=== PATIENT | male | born 1960 | race Caucasian/White ===

== ENCOUNTER 2023-07-29 15:51 | Outpatient (CLI) | payer OTHER, SELFPAY ==
--- NOTE | ~2023-07-29 | XR_ITS ---
EXAMINATION: XR hand LT min 3V DATE: 07/29/2023 16:21 INDICATION: Left hand pain. TECHNIQUE: 3 views of left hand were obtained. COMPARISON: None. FINDINGS: Bone alignment is normal. No fracture. There is moderate osteoarthritis of first carpometac arpal joint and mild osteoarthritis of first interphalangeal joint and second and third distal interp halangeal joints. There is a punctate radiopaque foreign body in distal fifth digit. IMPRESSION: 1. Polyarticular osteoarthritis. 2. Punctate radiopaque foreign body in distal fifth digit. Reviewed, dictated and finalized at location E.
--- NOTE | ~2023-07-29 | XR_ITS ---
EXAMINATION: XR hand RT min 3V DATE: 07/29/2023 16:21 INDICATION: Right hand pain. TECHNIQUE: 3 views of right hand were obtained. COMPARISON: None. FINDINGS: Bone alignment is normal. No fracture. There is mild osteoarthritis of distal radioulnar ernestina int, moderate osteoarthritis of first carpometacarpal joint and second and third metacarpophalangeal joints, and mild osteoarthritis of fifth metacarpophalangeal joint and many of the interphalangeal ernestina ints. There is moderate osteoarthritis of first interphalangeal joint. IMPRESSION: 1. Polyarticular osteoarthritis. Reviewed, dictated and finalized at location E.
== END 2023-07-29 15:52 | disposition home or self-care (01) ==
LOC: ANHIMG 15:53
PROVIDERS: Visit Provider Plastic Surgery
DX: M19.041 Primary osteoarthritis, right hand (principal); M19.042 Primary osteoarthritis, left hand
CPT/HCPCS: 73130

== ENCOUNTER 2024-10-21 02:39 | Day surgery (SDC) | payer OTHER, SELFPAY ==
[2024-10-01 13:16] VITALS: BMI 30.4
--- OUTSIDE RECORDS SUMMARY | 2024-10-21 02:52 | XMS_ITS | Clinical Summary ---
Author Organization [facility] Address [address] [place] [address] Care Team Providers Care Nut Roaster Helper Name Role Phone Unavailable Primary Care Provider Unavailabl e Source Comments [facility],non-owned Affiliates and Associated Physician Practices is amultiple site organization consisting of ambulatory clinics and hospital sitesin [place], [place], [place] and [place]. This disclosure is being madepursuant to the Care Everywhere program and may not contain all information available regarding this patient. Last updated 18.[facility] Social History Tobacco Use Types Packs/Day Years Used Date Smoking Tobacco: Never Assessed Sex and Gender Information Value Date Recorded Sex Assigned at Not on file Legal Sex Male 4:20 PM CDT Gender Identity Not on file Sexual Orientation Not on file Plan of Treatment Health Maintenance Due Date Last Done Comments COLOGUARD (AGES 45-75) - COL ON CA SCREENING 1962 COLON MONITORING 1962 COLONOSCOPY - COLON CA SCREENING 1962 CT COLONOGRAPHY - COLON CA SCREENING 1962 Colorectal Cancer Screening 1962 FIT - COLON CA SCREENING 1962 FLEX SIG - COLON CA SCREENING 1962 LIPID TESTING 1962 HIV SCREENING 1977 HEPATITIS C SCREENING 03/15/1980 DTAP/TDAP/TD VACCINES (1 - Tdap) 1981 PNEUMOCOCCAL VACCINE 50+ (1 of 1 - PCV) 2012 ZOSTER VACCINE (1 of 2) 2012 COVID-19 VACCINE ( - 2023-2 5 season) 2023 DEPRESSION SCREENING 04/14/2024 INFLUENZA VACCINE (#1) 2024 Respiratory Syncytial Virus (RSV) Vaccine Pt: or over 60 yrs (1 - 1-dose 75+ series) 2037 HEPATITIS B VACCINE Aged Out No longe r eligible based on patient's age to complete this topic HIB VACCINE Aged Out No longer eligi ble based on patient's age to complete this topic HPV VACCINE Aged Out No longer eligi ble based on patient's age to complete this topic MENINGOCOCCAL (Group B) VACC INE SHARED DECISION-MAKING Aged Out No longer eligibl e based on patient's age to complete this topic MENINGOCOCCAL GROUPS A/C/Y/W VACCINE Aged Out No longer eligible b ased on patient's age to complete this topic Insurance
--- OUTSIDE RECORDS SUMMARY | 2024-10-21 02:52 | XMS_ITS | Data Portability ---
Author Organization [place] - [facility], Main Office Address [address] [place] [address] Assessment No assessment recorded. Plan of Treatment Reminders Order Date Submit Date Provider Last Modified By Organization Details Last Modified Time Details Appointments Any 15 2024 08:30A M Dwight Dorsey MD Not available Not available Not available Lab HbA1c (hemoglob in A1c), blood 2024 025 Not available 07/28/2024 11:27:54 lipid panel, serum 2024 025 Not available 07/28/2024 11:27:53 CMP, serum or plasma 2024 025 [facility], [address] [place], [address], 07/28/2024 11:27:54 PSA, serum or plasma 2024 025 [facility], [address] [place], [address], 07/28/2024 11:27:54 CBC w/ auto diff 2024 025 [facility], [address] [place], [address], 07/28/2024 11:27:54 HbA1c (hemoglob in A1c), blood 2023 024 Not available 08/18/2024 09:36:04 lipid panel, serum 2023 024 Not available 08/18/2024 09:36:04 CMP, serum or plasma 2023 024 [facility], [address] [place], [address], 08/18/2024 09:36:05 PSA, serum or plasma 2023 024 [facility], [address] [place], [address], 08/18/2024 09:36:05 CBC w/ auto diff 2023 024 [facility], [address] [place], [address], 08/18/2024 09:36:05 HbA1c (hemoglob in A1c), blood 2022 023 NARAYAN Not available 02/25/2023 01:58:06 lipid panel, serum 2022 023 NARAYAN Not available 02/25/2023 01:48:05 CMP, serum or plasma 2022 023 NARAYAN [facility], [address] [place], [address], 02/24/2023 20:09:45 lipid panel, serum 2022 023 NARAYAN [facility], [address] [place], [address], 02/24/2023 20:09:50 PSA, serum or plasma 2022 023 [facility], [address] [place], [address], 03/04/2023 08:02:50 Referral EGD referral - Please call patient to schedule an appointme nt. Thank you. 2024 025 ANNETTE milner MD, [address], [address], [place], [address], 08/04/2024 12:40:32 orthopedi c surgeon referral - please eval for bilateral hand pain after trauma M79.64 2 2023 024 Not available 07/25/2023 16:04:03 Procedures None recorded. Surgeries None recorded. Imaging None recorded. Medication Orders meloxicam 15 mg tablet 2022 023 [email or web address] [id number], [address], [place], [place], [id number], 07/28/2024 10:17:09 Patient TargetsNo targets recorded. Patient Instructions Encounter Date Encounter Id Patient Instructions Last Modified By Organization Details Last Modified Time 02/24/2023 [id number] risk assessment* [email or web address] Not availabl e 02/24/2023 11:06:22 INFLUENZA VACCIN E Patient will get at local pharmacy/health department TD/TDAP Patient will get at local pharmacy/health department PNEUMONIA VACCINE Recommended at age 65 SHINGLES Patient will get at local pharmacy/health department PSA recommended COLORECTAL SCREENING No screening necessary patient is up to date DEPRESSION SCREENING Negative BMI Overweight try to lose 10% of your body weight NUTRITION Eat Heart Healthy Diet PHYSICAL ACTIVITY Need more exercise/physical activity ALCOHOL USE Occasional/Social Use TOBACCO USE non smoker LUNG CANCER SCREENING Non Smoker-not indicated SEXUALLY ACTIVE HEPATITIS C SCREENING Not indicated GLUCOSE SCREENING recommended LIPID SCREENING recommended [email or web address] Not available 02/24/2023 09:50:31 Reason for Referral Orthopedic Surgeon Referral for Pain of bilateral hands please eval for bilateral hand pain after trauma M79.642 Referring Physician: Monique Wheeler, Family Medicine, Encounter Date: 07/15/2023 EGD Referral for Gastroesoph ageal reflux disease Please call patient to schedule an appointment. Thank you. Referring Physician: Dwight Dorsey, Internal Medicine, Encounter Date: 07/28/2024 Results Created Date Observation Date Name Description Value Unit Range Abnormal Flag Note LastModifiedBy Organization Detail LastModifiedTime 02/21/202022 CBC/C OMPLE TE BLD COUNT W/DIF F hematocrit 50.9 % 39.3-5 0.0 high Not Available [facility] (Lab) [address] [place], [address], 02/20/2022 20:01:00 02/21/20 22 02/20/2022 CBC/C OMPLE TE BLD COUNT W/DIF F white blood cells 7.4 x10'3 /uL 4.2-10 .8 Not Available [facility] (Lab) [address] [facility] [place], [address], 02/20/2022 20:01:00 02/21/20 22 02/20/2022 CBC/C OMPLE TE BLD COUNT W/DIF F red blood cells 5.35 x10'6 /uL 4.10-5 .80 Not Available [facility] (Lab) [address] [place], [address], 02/20/2022 20:01:00 02/21/20 22 02/20/2022 CBC/C OMPLE TE BLD COUNT W/DIF F hemoglobin 16.8 g/dL 13.2-1 7.0 Not Available [facility] (Lab) [address] [place], [address], 02/20/2022 20:01:00 02/21/20 22 02/20/2022 CBC/C OMPLE TE BLD COUNT W/DIF F mean red cell volume 95.1 fL 80.0-9 7.0 Not Available [facility] (Lab) [address] [place], [address], 02/20/2022 20:01:00 02/21/20 22 02/20/2022 CBC/C OMPLE TE BLD COUNT W/DIF F mean red cell hemoglobin 31.4 pg 27.0-3 3.0 Not Available [facility] (Lab) [address] [place], [address], 02/20/2022 20:01:00 02/21/20 22 02/20/2022 CBC/C OMPLE TE BLD COUNT W/DIF F mean RBC HGB concentratio n 33.0 g/dL 31.0-3 6.0 Not Available [facility] (Lab) [address] [place], [address], 02/20/2022 20:01:00 02/21/20 22 02/20/2022 CBC/C OMPLE TE BLD COUNT W/DIF F red cell distribution width 13.1 % 11.8-1 5.5 Not Available [facility] (Lab) [address] [place], [address], 02/20/2022 20:01:00 02/21/20 22 02/20/2022 CBC/C OMPLE TE BLD COUNT W/DIF F platelets 178 x10'3 /uL 150-40 0 Not Available [facility] (Lab) [address] [place], [address], 02/20/2022 20:01:00 02/21/20 22 02/20/2022 CBC/C OMPLE TE BLD COUNT W/DIF F monocytes 7.7 % 5.0-12 .0 Not Available [facility] (Lab) [address] [place], [address], 02/20/2022 20:01:00 02/21/20 22 02/20/2022 CBC/C OMPLE TE BLD COUNT W/DIF F mean platelet volume 13.3 fL 9.0-12 .4 high Not Available [facility] (Lab) [address] [place], [address], 02/20/2022 20:01:00 02/21/20 22 02/20/2022 CBC/C OMPLE TE BLD COUNT W/DIF F neutrophils 67.1 % 39.0-7 2.0 Not Available [facility] (Lab) [address] [place], [address], 02/20/2022 20:01:00 02/21/20 22 02/20/2022 CBC/C OMPLE TE BLD COUNT W/DIF F lymphocytes 21.3 % 16.0-4 7.0 Not Available [facility] (Lab) [address] [place], [address], 02/20/2022 20:01:00 02/21/20 22 02/20/2022 CBC/C OMPLE TE BLD COUNT W/DIF F eosinophils 3.3 % 1.0-7. 0 Not Available [facility] (Lab) [address] [place], [address], 02/20/2022 20:01:00 02/21/20 22 02/20/2022 CBC/C OMPLE TE BLD COUNT W/DIF F basophils 0.5 % 0.0-2. 0 Not Available [facility] (Lab) [address] [place], [address], 02/20/2022 20:01:00 02/21/20 22 02/20/2022 CBC/C OMPLE TE BLD COUNT W/DIF F immature granulocytes 0.1 % 0.00-0 .50 Not Available [facility] (Lab) [address] [place], [address], 02/20/2022 20:01:00 02/21/20 22 02/20/2022 CBC/C OMPLE TE BLD COUNT W/DIF F neutrophils, absolute count 4.95 x10'3 /uL 1.5-8. 0 Not Available [facility] (Lab) [address] [place], [address], 02/20/2022 20:01:00 02/21/20 22 02/20/2022 CBC/C OMPLE TE BLD COUNT W/DIF F lymphocytes, absolute count 1.57 x10'3 /uL 1.07-3 .43 Not Available [facility] (Lab) [address] [place], [address], 02/20/2022 20:01:00 02/21/20 22 02/20/2022 CBC/C OMPLE TE BLD COUNT W/DIF F monocytes, absolute count 0.57 x10'3 /uL 0.29-0 .99 Not Available [facility] (Lab) [address] [place], [address], 02/20/2022 20:01:00 02/21/20 22 02/20/2022 CBC/C OMPLE TE BLD COUNT W/DIF F eosinophils, absolute count 0.24 x10'3 /uL 0.02-0 .53 Not Available [facility] (Lab) [address] [place], [address], 02/20/2022 20:01:00 02/21/20 22 02/20/2022 CBC/C OMPLE TE BLD COUNT W/DIF F basophils, absolute count 0.04 x10'3 /uL 0.01-0 .08 Not Available [facility] (Lab) [address] [place], [address], 02/20/2022 20:01:00 02/21/20 22 02/20/2022 CBC/C OMPLE TE BLD COUNT W/DIF F immature granulocytes ,absolute 0.01 x10'3 /uL 0.00-0 .05 Not Available [facility] (Lab) [address] [place], [address], 02/20/2022 20:01:00 02/21/20 22 02/20/2022 CBC/C OMPLE TE BLD COUNT W/DIF F nucleated red blood cells 0.0 % -0 Not Available [facility] (Lab) [address] [place], [address], 02/20/2022 20:01:00 02/21/20 22 02/20/2022 CBC/C OMPLE TE BLD COUNT W/DIF F NRBC# 0.00 x10'3 /uL Not Available [facility] (Lab) [address] [place], [address], 02/20/2022 20:01:00 02/21/20 22 02/20/2022 LIPID PANEL cholesterol 173 mg/dL 140-19 9 NIH FERNANDA NSUS RECOM MENDA TION FOR DAVID STERO L: ADULT CHILD LOW RISK: <200 <170 BORDE RLINE : <200- 239 ----- HIGH RISK: >240 >200 Not Available [facility] (Lab) [address] [place], [address], 02/20/2022 19:47:41 02/21/20 22 02/20/2022 LIPID PANEL triglyceride s 133 mg/dL 0-150 NIH FERNANDA NSUS REPOR T RECOM MENDA TION FOR TRIGL YCERI KAROLYN: ADULT CHILD LOW RISK: <150 ----- BODER LINE: 150-1 99 ----- HIGH RISK: >200 ----- Not Available [facility] (Lab) [address] [place], [address], 02/20/2022 19:47:41 02/21/20 22 02/20/2022 LIPID PANEL HDL cholesterol 32 mg/dL 40- low Not Available [facility] (Lab) [address] [place], [address], 02/20/2022 19:47:41 02/21/20 22 02/20/2022 LIPID PANEL LDL cholesterol, calculated 114 mg/dL 0-130 NIH FERNANDA NSUS REPOR T RECOM MENDA TIONS FOR LDL: ADULT CHILD LOW RISK <130 <110 (OPTI MAL LDL) <100 ----- BORDE RLINE : 130-1 59 ----- HIGH RISK: >160 >130 A TRIGL YCERI DE RESUL T >400 INVAL IDATE S THE CALCU LATIO N FOR LDL FRACT IONAT ION - THE LDL RESUL T WILL NOT BE REPOR MAURICE. Not Available [facility] (Lab) [address] [place], [address], 02/20/2022 19:47:41 02/21/20 22 02/20/2022 HEMOG LOBIN A1C HA1C 5.5 % 4.0-6. 0 Diabe anahy Scree jose alberto Crite ulises: <5.7% Consi stent with absen ce of diabe anahy 5.7-6 .4% Consi stent with incre ased risk for diabe anahy (pred iabet es) >OR=6 .5% Consi stent with diabe anahy REFER ENCE: Diabe anahy Care 2016, 39(Jenkins ppl.1 ):s13 -s22 Not Available [facility] (Lab) [address] [place], [address], 02/20/2022 22:42:56 02/21/20 22 02/20/2022 PSA SCREE N PSA medicare screen 0.76 NG/mL 0.00-4 .00 Not Available [facility] (Lab) [address] [place], [address], 02/20/2022 20:09:37 02/21/20 22 02/20/2022 COMPR EHENS SENA METAB OLIC PANEL chloride 104 mmol/ L 98-107 Not Available [facility] (Lab) [address] [place], [address], 02/20/2022 19:47:51 02/21/20 22 02/20/2022 COMPR EHENS SENA METAB OLIC PANEL sodium 138 mmol/ L 137-14 5 Not Available [facility] (Lab) [address] [place], [address], 02/20/2022 19:47:51 02/21/20 22 02/20/2022 COMPR EHENS SENA METAB OLIC PANEL potassium 4.6 mmol/ L 3.5-5. 1 Not Available [facility] (Lab) [address] [place], [address], 02/20/2022 19:47:51 02/21/20 22 02/20/2022 COMPR EHENS SENA METAB OLIC PANEL carbon dioxide 22 mmol/ L 22-30 Not Available [facility] (Lab) [address] [place], [address], 02/20/2022 19:47:51 02/21/20 22 02/20/2022 COMPR EHENS SENA METAB OLIC PANEL anion gap 16.6 mmol/ L 14-22 Not Available [facility] (Lab) [address] [place], [address], 02/20/2022 19:47:51 02/21/20 22 02/20/2022 COMPR EHENS SENA METAB OLIC PANEL glucose 70 mg/dL 70-99 Not Available [facility] (Lab) [address] [place], [address], 02/20/2022 19:47:51 02/21/20 22 02/20/2022 COMPR EHENS SENA METAB OLIC PANEL BUN 13 mg/dL 8-19 Not Available [facility] (Lab) [address] [place], [address], 02/20/2022 19:47:51 02/21/20 22 02/20/2022 COMPR EHENS SENA METAB OLIC PANEL creatinine 0.87 mg/dL 0.66-1 .25 Not Available [facility] (Lab) [address] [place], [address], 02/20/2022 19:47:51 02/21/20 22 02/20/2022 COMPR EHENS SENA METAB OLIC PANEL GFR >60 Refer ence Range : [place] ge GFR Healt hy Adult : >60 mL/mi n/1.7 3 m2 Chron ic Kidne y Disea se: 15-60 mL/mi n/1.7 3 m2 Kidne y Failu re: <15/m L/min /1.73 m2 www.n iddk. nih.g ov The MDRD study equat ion has not been valid ated in child rahel <18 years of age; pregn ant women ; the elder ly >85 years of age; or in some racia l or ethni c subgr oups, such as Hispa nics. Outsi de the valid ated brandon eters , estim ated GFR is less accur ate, requi ring clini cathie judgm ent on a case- by-ca se basis . Clini cathie inter preta tion for other races and ages must be made by the clini fabiano. The MDRD study equat ion has not been valid ated for the evalu ation of serum creat inine relat ed to nutri nithin l statu s or medic ation usage . For perso ns <18 years of age, a pedia tric GFR calcu lator is avail able on the [facility] websi te: https ://ej ernandez.dave vidal/pr ofess ional s/kdo qi/gf r_cal culat or Not Available [facility] (Lab) [address] [place], [address], 02/20/2022 19:47:51 02/21/20 22 02/20/2022 COMPR EHENS SENA METAB OLIC PANEL alkaline phosphatase 61 U/L 38-126 Not Available [facility] (Lab) [address] [place], [address], 02/20/2022 19:47:51 02/21/20 22 02/20/2022 COMPR EHENS SENA METAB OLIC PANEL alanine aminotransfe rase 29 U/L 0-50 Not Available [facility] (Lab) [address] [place], [address], 02/20/2022 19:47:51 02/21/20 22 02/20/2022 COMPR EHENS SENA METAB OLIC PANEL total protein 6.7 g/dL 6.3-8. 2 Not Available [facility] (Lab) [address] [place], [address], 02/20/2022 19:47:51 02/21/20 22 02/20/2022 COMPR EHENS SENA METAB OLIC PANEL aspartate aminotransfe rase 31 U/L 15-46 Not Available [facility] (Lab) [address] [place], [address], 02/20/2022 19:47:51 02/21/20 22 02/20/2022 COMPR EHENS SENA METAB OLIC PANEL bilirubin, total 1.00 mg/dL 0.20-1 .30 Not Available [facility] (Lab) [address] [place], [address], 02/20/2022 19:47:51 02/21/20 22 02/20/2022 COMPR EHENS SENA METAB OLIC PANEL calcium 8.7 mg/dL 8.4-10 .2 Not Available [facility] (Lab) [address] [place], [address], 02/20/2022 19:47:51 02/21/20 22 02/20/2022 COMPR EHENS SENA METAB OLIC PANEL albumin 4.2 g/dL 3.4-5. 0 Not Available [facility] (Lab) [address] [place], [address], 02/20/2022 19:47:51 02/21/20 22 02/20/2022 COMPR EHENS SENA METAB OLIC PANEL globulin 2.5 g/dL 2.6-4. 2 low Not Available [facility] (Lab) [address] [place], [address], 02/20/2022 19:47:51 02/21/20 22 02/20/2022 COMPR EHENS SENA METAB OLIC PANEL A/G ratio 1.7 ratio 1.0-2. 0 Not Available [facility] (Lab) [address] [place], [address], 02/20/2022 19:47:51 02/25/20 23 02/24/2023 COMPR EHENS SENA METAB OLIC PANEL sodium 137 mmol/ L 137-14 5 Not Available [facility] (Lab) [address] [place], [address], 02/24/2023 20:09:45 02/25/20 23 02/24/2023 COMPR EHENS SENA METAB OLIC PANEL potassium 3.9 mmol/ L 3.5-5. 1 Not Available [facility] (Lab) [address] [place], [address], 02/24/2023 20:09:45 02/25/20 23 02/24/2023 COMPR EHENS SENA METAB OLIC PANEL chloride 105 mmol/ L 98-107 Not Available [facility] (Lab) [address] [place], [address], 02/24/2023 20:09:45 02/25/20 23 02/24/2023 COMPR EHENS SENA METAB OLIC PANEL carbon dioxide 22 mmol/ L 22-30 Not Available [facility] (Lab) [address] [place], [address], 02/24/2023 20:09:45 02/25/20 23 02/24/2023 COMPR EHENS SENA METAB OLIC PANEL anion gap 13.9 mmol/ L 14-22 low Not Available [facility] (Lab) [address] [place], [address], 02/24/2023 20:09:45 02/25/20 23 02/24/2023 COMPR EHENS SENA METAB OLIC PANEL glucose 101 mg/dL 70-99 high Not Available [facility] (Lab) [address] [place], [address], 02/24/2023 20:09:45 02/25/20 23 02/24/2023 COMPR EHENS SENA METAB OLIC PANEL BUN 13 mg/dL 8-19 Not Available [facility] (Lab) [address] [place], [address], 02/24/2023 20:09:45 02/25/20 23 02/24/2023 COMPR EHENS SENA METAB OLIC PANEL creatinine 0.93 mg/dL 0.66-1 .25 Not Available [facility] (Lab) [address] [place], [address], 02/24/2023 20:09:45 02/25/20 23 02/24/2023 COMPR EHENS SENA METAB OLIC PANEL GFR >60 Refer ence Range : [place] GFR Healt hy Adult : >60 mL/mi n/1.7 3 m2 Chron ic Kidne y Disea se: 15-60 mL/mi n/1.7 3 m2 Kidne y Failu re: <15/m L/min /1.73 m2 www.n iddk. nih.g ov The MDRD study equat ion has not been valid ated in child rahel <18 years of age; pregn ant women ; the elder ly >85 years of age; or in some racia l or ethni c subgr oups, such as Hissd nics. Outsi de the valid ated brandon eters , estim ated GFR is less accur ate, requi ring clini cathie judgm ent on a case- by-ca se basis . Clini cathie inter preta tion for other races and ages must be made by the clini fabiano. The MDRD study equat ion has not been valid ated for the evalu ation of serum creat inine relat ed to nutri nithin l statu s or medic ation usage . For perso ns <18 years of age, a pedia tric GFR calcu lator is avail able on the F websi te: https ://ww w.kid oma.o rg/pr ofess ional s/kdo qi/gf r_cal culat or Not Available [facility] (Lab) [address] [place], [address], 02/24/2023 20:09:45 02/25/20 23 02/24/2023 COMPR EHENS SENA METAB OLIC PANEL alkaline phosphatase 65 U/L 38-126 Not Available [facility] (Lab) [address] [place], [address], 02/24/2023 20:09:45 02/25/20 23 02/24/2023 COMPR EHENS SENA METAB OLIC PANEL alanine aminotransfe rase 41 U/L 0-50 Not Available [facility] (Lab) [address] [place], [address], 02/24/2023 20:09:45 02/25/20 23 02/24/2023 COMPR EHENS SENA METAB OLIC PANEL aspartate aminotransfe rase 30 U/L 15-46 Not Available [facility] (Lab) [address] [facility] [place], [address], 02/24/2023 20:09:45 02/25/20 23 02/24/2023 COMPR EHENS SENA METAB OLIC PANEL bilirubin, total 0.90 mg/dL 0.20-1 .30 Not Available [facility] (Lab) [address] [place], [address], 02/24/2023 20:09:45 02/25/20 23 02/24/2023 COMPR EHENS SNEA METAB OLIC PANEL calcium 9.2 mg/dL 8.4-10 .2 Not Available [facility] (Lab) [address] [place], [address], 02/24/2023 20:09:45 02/25/20 23 02/24/2023 COMPR EHENS SENA METAB OLIC PANEL total protein 7.0 g/dL 6.3-8. 2 Not Available [facility] (Lab) [address] [facility] [place], [address], 02/24/2023 20:09:45 02/25/20 23 02/24/2023 COMPR EHENS SENA METAB OLIC PANEL albumin 4.3 g/dL 3.4-5. 0 Not Available [facility] (Lab) [address] [place], [address], 02/24/2023 20:09:45 02/25/20 23 02/24/2023 COMPR EHENS SENA METAB OLIC PANEL globulin 2.7 g/dL 2.6-4. 2 Not Available [facility] (Lab) [address] [place], [address], 02/24/2023 20:09:45 02/25/20 23 02/24/2023 COMPR EHENS SENA METAB OLIC PANEL A/G ratio 1.6 ratio 1.0-2. 0 Not Available [facility] (Lab) [address] [place], [address], 02/24/2023 20:09:45 02/25/20 23 02/24/2023 LIPID PANEL cholesterol 187 mg/dL 140-19 9 NIH FERNANDA NSUS RECOM MENDA TION FOR DAVID STERO L: ADULT CHILD LOW RISK: <200 <170 BORDE RLINE : <200- 239 ----- HIGH RISK: >240 >200 Not Available [facility] (Lab) [address] [place], [address], 02/24/2023 20:09:50 02/25/20 23 02/24/2023 LIPID PANEL triglyceride s 221 mg/dL 0-150 high NIH FERNANDA NSUS REPOR T RECOM MENDA TION FOR TRIGL YCERI KAROLYN: ADULT CHILD LOW RISK: <150 ----- BODER LINE: 150-1 99 ----- HIGH RISK: >200 ----- Not Available [facility] (Lab) [address] [place], [address], 02/24/2023 20:09:50 02/25/20 23 02/24/2023 LIPID PANEL HDL cholesterol 29 mg/dL 40- low Not Available [facility] (Lab) [address] [place] [address], [address], 02/24/2023 20:09:50 02/25/20 23 02/24/2023 LIPID PANEL LDL cholesterol, calculated 114 mg/dL 0-130 NIH FERNANDA NSUS REPOR T RECOM MENDA TIONS FOR LDL: ADULT CHILD LOW RISK <130 <110 (OPTI MAL LDL) <100 ----- BORDE RLINE : 130-1 59 ----- HIGH RISK: >160 >130 A TRIGL YCERI DE RESUL T >400 INVAL IDATE S THE CALCU LATIO N FOR LDL FRACT IONAT ION - THE LDL RESUL T WILL NOT BE REPOR MAURICE. Not Available [facility] (Lab) [address] [place], [address], 02/24/2023 20:09:50 02/25/20 23 02/24/2023 PSA SCREE N PSA medicare screen 0.75 NG/mL 0.00-4 .00 Not Available [facility] (Lab) [address] [place], [address], 02/24/2023 20:33:48 02/25/20 23 02/24/2023 HEMOG LOBIN A1C HA1C 5.5 % 4.0-6. 0 Diabe anahy Scree jose alberto Crite ulises: <5.7% Consi stent with absen ce of diabe anahy 5.7-6 .4% Consi stent with incre ased risk for diabe anahy (pred iabet es) >OR=6 .5% Consi stent with diabe anahy REFER ENCE: Diabe anahy Care 2016, 39(Jenkins ppl.1 ):s13 -s22 Not Available [facility] (Lab) [address] [place], [address], 02/24/2023 20:41:30 02/21/20 22 02/08/2014 colon oscop y scree jose alberto (PROC ) No observ ation record ed. [email or web address] Not Available 2022 09:39:04 02/23/20 22 12/10/2019 colon oscop y scree jose alberto (PROC ) No observ ation record ed. [email or web address] Not Available 2022 09:39:04 Result Notes None recorded. Problems Name Problem SNOMED Code Status Onset Date Resolution Date Notes Provider Name and Address Organization Details Recorded Time Body mass index 30+ - obesity 089949749 Active 2018 Not Available [facility] 3 05:58:58 Gastroeso phageal reflux disease 919406053 Active 2021 Dwight Dorsey MD [address], [place], [address] , [employer] 3 09:38:14 Adult health examinati on Active 2020 Dwight Dorsey MD [address], [place], [address] , [employer] 3 09:40:05 Hypertrig lyceridem ia 916498898 Active [address] Not [address] [facility] 3 05:58:59 Sinusitis 91581996 Completed Not Available [facility] 3 05:58:59 Arthritis 1605615 Active 2021 Dwight Dorsey MD [address], [place], [address] , [facility] 3 09:38:07 Umbilical hernia 683842455 Completed 02/24/2023 Dwight Dorsey MD [address], [place], [address] , [employer] 3 09:40:00 Pharyngit is [id number] Completed Not Available [facility] 3 05:58:59 Upper respirato ry infection 93549468 Completed Not Available [facility] 3 05:58:59 Chronic cough 35870836 Completed 202002/24/2023 Dwight Dorsey MD [address], [place], [address] , [employer] 3 09:38:21 Rhinitis [id number] Completed Not Available [facility] 3 05:59:00 Sleep apnea 20655010 Active cpap Not Available [facility] 3 05:59:00 Hyperglyc emia 38116097 Active 2020 Not Available [facility] 3 05:59:00 Pain of bilateral hands [id number] 364619 Active 2023 Monique Wheeler NP [address] [facility], [address] [address], [place], [address] , [facility] 4 14:13:50 Pain in right hand [id number] 9109 Active 2023 Monique Wheeler NP [address] [facility], [address] [address], [place], [address] , [facility] 4 14:14:24 Pain of left hand [id number] 9103 Active 2023 Monique Wheeler NP [address] [facility], [address] [address], [place], [address] , [facility] 4 14:14:55 Problem Notes None recorded. Procedures Surgical History Date Name Laterality Status Provider Name and Address Organization Details Recorded Time Hernia Surgery completed Not Available [facility] 06/12/2022 05:54:41 Imaging Results None recorded. Procedure Notes None recorded. Medical Equipment None Reported. Medications Name Sig Start Date Stop Date Status Note LastModified by Organization Details LastModified Time doxycycline hyclate 100 mg capsule TAKE 1 CAPSULE BY MOUTH TWICE DAILY FOR 2 WEEKS. DO NOT LIE DOWN FOR 1 HOUR AFTER active Not Available Not Available No t Available azithromyci n 250 mg tablet 2 tabs po qd x 1 day then 1 tab po qd x 4 days active Not Available Not Available No t Available nystatin 100,000 unit/gram topical ointment APPLY TO THE AFFECTED AREA THREE TIMES DAILY active Not Available Not Available No t Available hydrocodone 5 mg-acetamin ophen 325 mg tablet TK 1 TO 2 TS PO Q 4 TO 6 H active Not Available Not Available No t Available meloxicam 15 mg tablet Take 1 tablet every day by oral route as needed. 07/28 completed WILL 02/24 NOV 03/09 ok to rf Not Available Not Available Not Available fluorouraci l 5 % topical cream APPLY SPARINGLY TO BOTTOM LIP TWICE DAILY FOR 2 WEEKS active Not Available Not Available No t Available amoxicillin 500 mg tablet Take 1 tablet 3 times a day by oral route for 7 days. active Not Available Not Available No t Available meloxicam 7.5 mg tablet TAKE 1 TABLET BY MOUTH TWICE DAILY 02/20 completed Not Available Not Available Not Available oxycodone-a cetaminophe n 5 mg-325 mg tablet 02/20 completed Not Available Not Available Not Available oxycodone-a cetaminophe n 10 mg-325 mg tablet TK 1 TO 2 TS PO Q 4 TO 6 H NEEDED active Not Available Not Available No t Available ciprofloxac in 0.3 % eye drops INSTILL 1 DROP IN RIGHT EYE FOUR TIMES DAILY 02/20 completed Not Available Not Available Not Available pantoprazol e 40 mg tablet,kris yed release TAKE 1 TABLET BY MOUTH EVERY DAY 2024 active WILL NOV ok to rf Not Available Not Available Not Available fluorometho lone 0.1 % eye drops,suspe nsion 02/20 completed Not Available Not Available Not Available montelukast 10 mg tablet TK 1 T PO QD active Not Available Not Available No t Available methylpredn isolone 4 mg tablets in a dose pack take as directed 04/15 completed Not Available Not Available Not Available cefdinir 300 mg capsule Take 1 capsule every 12 hours by oral route. active Not Available Not Available No t Available fluticasone propionate 50 mcg/actuati on nasal spray,suspe nsion Inhale 2 sprays every day by intranasa l route in the evening. active Not Available Not Available No t Available metoclopram jessica 10 mg tablet Take 1 tablet 3 times a day by oral route as needed. active Not Available Not Available No t Available Prilosec OTC 20 mg tablet,kris yed release Take by oral route. 2014 active Not Available Not Available Not Avai lable ibuprofen 2012 active otc Not Available Not Available Not Avai lable Claritin-D 24 Hour 08/12 completed Not Available Not Available Not Available Suprep Bowel Prep Kit 17.5 gram-3.13 gram-1.6 gram oral solution MIX AND DRINK UTD active Not Available Not Available No t Available Adrianna Allergy QD 04/15 completed Not Available Not Available Not Available Nexium 24HR 22.3 mg capsule,del ayed release Take by oral route. 06/28 completed Not Available Not Available Not Available Afluria Qd 2018- (36 mos up)(PF)60 mcg (15 mcg x4)/0.5 mL IM syringe ADM 0.5ML IM UTD 06/20 completed Not Available Not Available Not Available ID NOW COVID-19 Test Kit USE 1 KIT TODAY DIRECTED 02/20 completed Not Available Not Available Not Available Flucelvax Quad (PF) 60 mcg (15 mcg x 4)/0.5 mL IM syringe ADM 0.5ML IM UTD 02/21 completed Not Available Not Available Not Available Vitals Date Recorded Body weight Body mass index (BMI) Body height Body temperature Heart rate Oxygen saturation Oxygen saturation in Arterial blood by Pulse oximetry Systolic And Diastolic Provider Name and Address Organization Details Last Updated DateTime 4 415625. 76 g 36.3 kg/m2 182.88 cm 97.3 [degF] 68 /min 96 % 96 % 120/80 mm[Hg] Leonarda devine [facility] [place] 4 14:09:08 Date Recorded Body height Body temperature Body mass index (BMI) Body weight Heart rate Oxygen saturation Oxygen saturation in Arterial blood by Pulse oximetry Systolic And Diastolic Provider Name and Address Organization Details Last Updated DateTime 5 182.88 cm 97.6 [degF] 35.3 kg/m2 409487. 02 g 85 /min 96 % 96 % 142/80 mm[Hg] Leonarda devine [facility] [place] 5 09:40:39 Date Recorded Body height Body mass index (BMI) Body weight Body temperature Heart rate Oxygen saturation Oxygen saturation in Arterial blood by Pulse oximetry Systolic And Diastolic Provider Name and Address Organization Details Last Updated DateTime 4 182.88 cm 35.4 kg/m2 881758. 61 g 97.6 [degF] 77 /min 95 % 95 % 130/80 mm[Hg] Leonarda devine [facility] [place] 4 09:34:42 Date Recorded Body mass index (BMI) Body height Oxygen saturation Oxygen saturation in Arterial blood by Pulse oximetry Heart rate Body weight Systolic And Diastolic Provider Name and Address Organization Details Last Updated DateTime 2 32 kg/m2 182.88 cm 96 % 96 % 62 /min 345213. 8 g 128/84 mm[Hg] Not Available [facility] 3 05:57:12 Date Recorded Body weight Body temperature Heart rate Oxygen saturation Oxygen saturation in Arterial blood by Pulse oximetry Systolic And Diastolic Provider Name and Address Organization Details Last Updated DateTime 3 065268. 87 g 98.1 [degF] 63 /min 96 % 96 % 124/80 mm[Hg] Carol Araujo MA [facility] 3 09:30:28 Social History Question Answer Notes LastModified by Organizat ion Details LastModified Time Tobacco Smoking Status Never Smoker Elenita tabares [facility] 02/24/2023 09:25:02 Do You Have An Advance Directive? Yes [id number] Information not available 06/12/2022 Do You Wear A Helmet When Biking? No Information not available 02/24/2023 What Is Your Level Of Caffeine Consumption? Occasional [id number] Information not available 06/12/2022 How Much Tobacco Do You Chew? None [id number] Information not available 06/12/2022 What Type Of Diet Are You Following? REGULAR [id number] Information not available 06/12/2022 Which Illicit Or Recreational Drugs Have You Used? None Information not available 02/24/2023 What Is The Highest Grade Or Level Of School You Have Completed Or The Highest Degree You Have Received? [id number] Information not available 02/24/2023 Have There Been Any Changes To Your Family Or Social Situation? No Information not available 02/24/2023 Do You Use Insect Repellent Routinely? Yes Information not available 02/24/2023 Where Do You Live? [facility] Information not available 02/24/2023 What Was The Date Of Your Most Recent Tobacco Screening? 02/20/2021 Information not available 02/24/2023 Have You Ever Been Counseled For Unhealthy Alcohol Use? No Information not available 02/24/2023 Do You Have Any Pets? Yes Information not available 02/24/2023 What Is Your Relationship Status? [id number] Information not available 06/12/2022 Do You Use Your Seat Belt Or Car Seat Routinely? Yes Information not available 02/24/2023 Do You Have Smoke And Carbon Monoxide Detectors In Your Home? Yes Information not available 02/24/2023 Are You Passively Exposed To Smoke? No Information not available 02/24/2023 Are There Any Smokers In Your House? No Information not available 02/24/2023 Do You Use Sunscreen Routinely? Yes Information not available 02/24/2023 Have You Recently Traveled Abroad? Yes [place] Information not available 02/24/2023 Do You Have Any Dietary Restrictions? No Information not available 02/24/2023 Sex: Male Functional Status Question Answer Note LastModified by Organizat ion Details LastModified Time Do you use any illicit or recreational drugs? No Information not available 02/24/2023 Do you or have you ever used any other forms of tobacco or nicotine? No Information not available 02/24/2023 What is your level of alcohol consumption? Moderate weekends [id number] Information not available 06/12/2022 Do you or have you ever used smokeless tobacco? 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 Never used electronic cigarettes Information not available 02/24/2023 What is your exercise level? None [id number] Information not available 06/12/2022 Mental Status Question Answer Note LastModified by Organization D etails LastModified Time Do you feel stressed (tense, restless, nervous, or anxious, or unable to sleep at night)? [id number] Information not available 02/24/2023 Family History Relationship Description Onset Age of this Age Resolved Age Notes LastModified by Organization Details LastModified Time Mother Essential hypertension Not available 09:25:02 Mother Diabetes mellitus [id number] Not available 06/12/2022 05:54:44 Maternal Grandmother Diabetes mellitus [id number] Not available 06/12/2022 05:54:44 Maternal Grandfather Family history of malignant neoplasm COLON Not available 2022 09:25:02 Medical History No medical history recorded. Immunizations Vaccine Type Date Status Note Provider Nam e and Address Organization Details Recorded Time Influenza, split virus, quadrivalent, preservative 0 completed Not Available [facility] 06/12/2022 06:03:10 Tdap 2 completed Not Available [facility] 06/12/2022 06:03:10 Influenza, split virus, quadrivalent, PF 2 completed Not Available [facility] 06/12/2022 06:03:10 Influenza, split virus, quadrivalent, PF 1 completed Not Available [facility] 06/12/2022 06:03:10 Influenza, split virus, quadrivalent, preservative 9 completed Not Available [facility] 06/12/2022 06:03:10 Past Encounters Encounter ID Performer Location Encounter Start Date Encounter Closed Date Diagnosis/Indication Diagnosis SNOMED-CT Code Diagnosis ICD10 Code Diagnosis Note [id number] Dwight Dorsey MD [facility] [address] [place] [address] 07/27/2020 00:00:00 07/27/2020 11:28:53 [id number] Dwight Dorsey MD [facility] [address] [place] [address] 02/20/2021 00:00:00 02/20/2021 09:55:16 [id number] [facility] [place] [address] [place] [address] 03/27/2021 00:00:00 03/27/2021 13:51:09 [id number] Dwight Dorsey MD [facility] [address] [place] [address] 02/20/2022 00:00:00 02/20/2022 13:19:08 [id number] Dwight Dorsey MD [facility] Internal [facility] [address] [place] [address] 02/24/2023 09:23:55 02/24/2023 10:00:03 Adult health examination 497609914 Z00.00 Colonoscop y- 11/09/2019E ndoscopy- 11/09/2019P SA- dueFLU- 02/2022Tda p todayCOVID - has had both Pfizer inj Gastroesop hageal reflux disease 235547587 K21.9 controlled Arthritis 5295661 M19.90 start meds Hypertriglyceridemia 302 025818 E78.1 advised to watch diet Sleep apnea 32751336 G47 .30 on cpap Hyperglycemia 84062034 R 73.9 Screening for malignant neoplasm of prostate 368723254 Z12.5 Depression screening 171 467453 Z13.31 [id number] Dwight Dorsey MD [facility] Internal Med [facility] [address] [place] [address] 07/15/2023 14:01:09 07/15/2023 14:21:21 Pain in right hand 0759968448 61438 M79.641 he would like to see a hand specialist , will send referral, if he needs any additional testing he will let me know so that i can order it for him. Pain of left hand 757163 8358 21561 M79.642 Pain of bi lateral hands 5217871197 2126815 M79.963 [id number] Dwight Dorsey MD [facility] Internal [facility] [address] [facility] [place] [address] 02/03/2024 09:20:37 02/03/2024 10:02:06 Adult health examination 719230326 Z00.00 Colonoscop y- 11/09/2019, nl, next in 10 yrsEndosco py- 11/09/2019P SA- 02/24/23FL U- 02/2022 - Declined 2023TdapCO VID- has had both Pfizer inj Gastroesop hageal reflux disease 301054963 K21.9 controlled with meds Arthritis 1135072 M19.90 meds help Hypertriglyceridemia 302 672797 E78.1 advised to watch diet Sleep apnea 12820401 G47 .30 on cpap Hyperglycemia 49192591 R 73.9 keep watching diet Screening for malignant neoplasm of prostate 558753157 Z12.5 [id number] Dwight Dorsey MD [facility] [address] [place] [address] 07/28/2024 09:31:09 07/28/2024 11:25:31 Adult health examination 821644834 Z00.00 Colonoscop y- 11/09/2019, nl, next in 10 yrsEndosco py- 11/09/2019P SA- 02/24/23FL U- 02/2022 - Declined 2023TdapCO VID- has had both Pfizer inj Gastroesop hageal reflux disease 841275119 K21.9 not better, getting worse, not better after stopping meloxicam, needs EGD Arthritis 2501240 M19.90 meds help Hypertriglyceridemia 302 162853 E78.1 advised to watch diet Sleep apnea 51952285 G47 .30 on cpap Hyperglycemia 38273402 R 73.9 keep watching diet Screening for malignant neoplasm of prostate 326960993 Z12.5 Health Concerns Section Related Observation LastModified by Organization Detai ls LastModified Time None Recorded Concern Status LastModified by Organization Details LastModified Time None Recorded Advance Directives Directive Y: Payers Insurance Date Sequence Insurance Name Policy Number Policy Colindres Covered Member ID Colindres Member ID Guarantor Name 07/28/2024 1 [facility] [id number] Willy Griffith [id number] Willy Griffith Notes Date Note Type Note Provider Name and Address Organization Details Recorded Time 02/24/2023 text/html Pt is here today for ANNUAL EXAMSleep apnea- cpap, compliant, gets good sleep with cpapGERD- symptoms are under control , needs it dailyMeds- pantoprazole 40 mg qd H/o Kidney stone, only one time, no recurrence Hypertriglyceridem ia- watching diet Hyperglycemia- watching diet Obesity- watching diet Arthritis- takes otc, hand and bigger joint pain, mother has Rh arthritis, his Rh was neg 2020,taking otc not helpingEndoscopy/C olonoscopy 11/09/2019 Dr. Chatterjee. Dwight Dorsey MD [address], [place], [address], [facility] 02/24/2023 11:06:26 07/15/2023 text/html He is here today for bilateral hand pain, Left is worse , had PT on his left hand about 3 yrs ago and has continually kept hurting. Right hand he jammed is fingers last October and they are still bothering him.Would like a referral to a hand specialist history of hand trauma to both hands at different times, he has a friend that went to dr osman and he would like to see the same doctor Monique Wheeler NP [address], [place], [address], [place] 07/15/2023 14:22:47 02/03/2024 text/html Pt is here today for Currently on Doxy for a ruptured cyst on chest. Sleep apnea- cpap, compliant, gets good sleep with cpapGERD- symptoms are under control , needs it dailyMeds- pantoprazole 40 mg qd H/o Kidney stone, only one time, no recurrence Hypertriglyceridem ia- watching diet, has lost some weight Hyperglycemia- watching diet Obesity- watching diet, has lost 7 lbs Arthritis- takes otc, hand and bigger joint pain, mother has Rh arthritis, his Rh was neg 2020,meloxicam helpsEndoscopy/Col onoscopy 11/09/2019 Dr. Chatterjee. Dwight Dorsey MD [address], [place], [address], [place] 02/03/2024 10:04:35 07/28/2024 text/html Pt is here today for his routine follow upPT IS NOT FASTING ( [facility] ) Sleep apnea- cpap, compliant, gets good sleep with cpapGERD- symptoms are not under control, wakes up at night due to pain in the epigastric area, gets burning in the abd and throat.Meds- pantoprazole 40 mg qd H/o Kidney stone, only one time, no recurrence Hypertriglyceridem ia- watching diet, has lost some weight Hyperglycemia- watching diet Obesity- watching diet, Arthritis- takes otc, hand and bigger joint pain, mother has Rh arthritis, his Rh was neg 2020,was on meloxicam but has nt taken for 4-5 monthsEndoscopy/Co lonoscopy 11/09/2019 Dr. Chatterjee. Melanoma- s/p resection on the chest Dwight Dorsey MD [address] [facility] [facility] [address], [place], [address], [place] [facility] 07/28/2024 16:17:06
--- OUTSIDE RECORDS SUMMARY | 2024-10-21 02:52 | XMS_ITS | Encounter Summary ---
Author Organization [facility] Address [address] [place] [address] Care Team Providers Care Biodiesel Processing Technician Name Role Phone Unavailable Primary Care Provider Unavailabl e Encounter Details Date Type Department Care Team (Late st Contact Info) Description 10/30/2022 Lab Requisition [facility] - DermPath Lab [address] [facility] [place] [phone] Lisseth Campbell MD [address] [place] [address] [place] [id number] Neoplasm of uncertain behavior of skin Social History Tobacco Use Types Packs/Day Years Used Date Smoking Tobacco: Never Assessed Sex and Gender Information Value Date Recorded Sex Assigned at Not on file Legal Sex Male 4:20 PM CDT Gender Identity Not on file Sexual Orientation Not on file documented as of this encounter Plan of Treatment Not on file documented as of this encounter Procedures Procedure Name Priority Date/Time Associated Diagnosis Comments DERMATOPATHOLOGY Routine 10/30/2022 12:0 0 AM CDT Neoplasm of uncertain behavior of skin documented in this encounter Results * DERMATOPATHOLOGY (10/30/2022 12:00 AM CDT) Case Report Dermatopathology Report Case: [id number] Authorizing Provider: Lisseth Campbell MD Collected: 10/30/2022 12:00 AM Ordering Location: [facility] DermPath Lab Received: 11/01/2022 08:11 AM Pathologist: Marilu Kelly MD Specimens: A) - Skin, left posterior shoulder B) - Skin, right upper back 1:07 PM CDT DERMATOPATHOLOGY LABORATORY Final Diagnosis Specimen A. SKIN, left posterior shoulder: LICHEN PLANUS-LIKE KERATOSIS (BENIGN LICHENOID KERATOSIS) (L82.1) POST-INFLAMMATORY PIGMENT ALTERATION (L81.9) Specimen B. SKIN, right upper back: BASAL CELL CARCINOMA, SUPERFICIAL MULTIFOCAL (C44.41) 3 1:07 PM T DERMATOPATHOLOGY LABORATORY at 1307 CDT Clinical History A: Lichenoid Keratosis vs melanoma situ B: BCC 3 1:07 PM CDT DERMATOPATHOLOGY LABORATORY Gross Description Specimen A: Received is one formalin filled container labeled with the patient's name and designated left posterior shoulder. The specimen consists of a shave biopsy measuring 93c12j3 mm. Jar 0. Specimen B: Received is one formalin filled container labeled with the patient's name and designated right upper back. The specimen consists of a shave biopsy measuring 6x5x1 mm. Jar 0. 3 1:07 PM CDT DERMATOPATHOLOGY LABORATORY Microscopic Description Specimen A. SKIN, left posterior shoulder: The epidermis is mildly acanthotic. There is a lichenoid infiltrate with vacuolar changes of basilar keratinocytes and scattered necrotic keratinocytes. Sections show abundant melanin within melanophages around the superficial vascular plexus. Specimen B. SKIN, right upper back: Attached to the undersurface of the epidermis, there are small aggregates of basaloid cells with a high nuclear to cytoplasmic ratio and peripheral palisading. 3 1:07 PM CDT DERMATOPATHOLOGY LABORATORY Disclaimer An external and internal positive and negative controls are appropriate for the histochemical, immunohistochemical and immunofluorescence stain(s) in this case (if any), except where stated explicitly. The performance characteristics of the stain(s) cited in this report were developed and its performance characteristic determined by the Dermatopathology Laboratory at [facility], directed by Dr. Carolina Parsons. These tests need not be, and therefore are not, approved by the [place] Food and Drug Administration. The tests are used for clinical purposes. Billing Codes Specimen Charges Stain Charges 79161 09239 1 1 3 1:07 PM CDT DERMATOPATHOLOGY LABORATORY Embedded Images 3 1:07 PM CDT DERMATOPATHOLOGY LABORATORY Pathology/Cytology TISSUE SPECIMEN FROM SKIN / Unknown 10/30/2022 11/01/2022 8:11 AM CDT Miscellaneous samples (specimen) TISSUE SPECIMEN FROM SKIN / Unknown 10/30/2022 11/01/2022 8:11 AM CDT us Lisseth Campbell MD LAB - PATHOLOGY/CYTOLOGY ORDERAB LES Final Result DERMATOPATHOLOGY LABORATORY [facility] - Department of Dermatology [facility] [address] [place] [address], [address] [phone] documented in this encounter Visit Diagnoses Diagnosis Neoplasm of uncertain behavior of skin documented in this encounter
[2024-10-21 09:51] VITALS: BP 156/85; PULSE 65; RESP 16; TEMP 36.6; O2SAT 97
[2024-10-21] MEDS: LACTATED RINGERS 1,000 ML 150 ML IV CONT (09:58)
--- NOTE | 2024-10-21 10:27 | WPDANESEPPF ---
Anes - Initial Pre Proc Eval Procedure: Operation Date: 10/21/24 11:15 Proposed Procedures p Esophagogastroduodenoscopy - Sandeep Noble MD Date/Time: 10/21/24 10:27 Surgeon: Sandeep Noble MD Pre Op Diagnosis: GERD Patient Data Age: 64 Gender: M Height: 1.83 m Weight: 118.8 kg Last Vital Signs Temp 97.8 F 10/21/24 09:51 Pulse 65 10/21/24 09:51 Resp 16 10/21/24 09:51 BP 156/85 H 10/21/24 09:51 Pulse Ox 97 10/21/24 09:51 O2 Del Method Room Air 10/21/24 09:51 Allergies Allergy/AdvReac Type Severity Reaction Status Date / Time No Known Allergies Allergy Verified 10/21/24 09:50 Home Medications ?Medication ?Instructions ?Recorded ?Confirmed ?Type pantoprazole 40 mg tablet,delayed 40 mg PO DAILY 10/01/24 10/21/24 History release Patient hx anesthesia problems: none Family hx anesthesia problems: none Results Review: All pre-operative results and documents have been reviewed as part of the pre-operative evaluation. [facility] Social History Social History Smoking status: Never smoker Alcohol intake: never Substance use: never Do You Feel Safe in your Home?: Yes Lack of Transportation: No Lack of Food: Never True Current Housing: I Have Housing Concerned About Future Housing: No Difficulty Paying Gas/Electric Bills: No Difficulty Paying for Meds: No Currently Unemployed: No Education: High School Diploma/GED Difficulty w/ Childcare or Family Care: No Living arrangements: with family Spiritual care concerns: No Anes - Eval Final PreProcedure Day of Procedure 10/21/24 10:27 Patient weight: obese Lungs: normal air movement Airway: Mallampati scale class II Neurological: alert and oriented Last oral intake: >/= 8 hours ASA classification: II Emergent: no Anesthetic plan: proceed Anesthesia type and monitoring: general GIVS and standard monitoring Results Review: All pre-operative results and documents have been reviewed as part of the pre-operative evaluation. INGRID on CPAP, BMI 35. Informed Consent: The patient's anesthetic plan and its attendant risks and benefits were discussed with the patient/family/POA. Questions were solicited and answers provided to the satisfaction of the patient/family/POA.
--- NOTE | 2024-10-21 10:58 | PM.HPGS ---
History of Present Illness History of Present Illness Consent: Risks, benefits, and alternatives have been discussed and questions answered. Patient agrees to proceed with procedure. Chief complaint: GERD Narrative: Willy Griffith is a 64 year old male with epigastric pain, using ppi, last egd few years ago Review of Systems Review of Systems: All systems reviewed & are unremarkable except as noted in HPI and below PMFSH Past Medical History Medical History (Updated 10/21/24 @ 11:02 by Sandeep Noble MD) Epigastric pain Social History Social History Smoking status: Never smoker Alcohol intake: never Substance use: never Do You Feel Safe in your Home?: Yes Lack of Transportation: No Lack of Food: Never True Current Housing: I Have Housing Concerned About Future Housing: No Difficulty Paying Gas/Electric Bills: No Difficulty Paying for Meds: No Currently Unemployed: No Education: High School Diploma/GED Difficulty w/ Childcare or Family Care: No Living arrangements: with family Spiritual care concerns: No Meds Home Medications and Allergies Home Medications ?Medication ?Instructions ?Recorded ?Confirmed ?Type pantoprazole 40 mg tablet,delayed 40 mg PO DAILY 10/01/24 10/21/24 History release Allergies Allergy/AdvReac Type Severity Reaction Status Date / Time No Known Allergies Allergy Verified 10/21/24 09:50 Vital Signs Vital Signs - 24 hr 10/21/24 09:51 Temperature 97.8 F Pulse Rate 65 Respiratory Rate 16 Blood Pressure 156/85 H Pulse Oximetry 97 Oxygen Delivery Room Air Exam Const: General: comfortable and no acute distress HENMT: Face/Nose/Sinus: Normal nares present Eyes: General: appearance normal, both eyes and all related structures Neck: Neck: no JVD Resp: Auscultation: clear to auscultation bilaterally Cardio: Rate: regular rate Rhythm: regular rhythm GI: Inspection: non-distended GI Palp: Yes Soft to palpation Skin: General skin exam: normal color Neuro: Speech: normal speech Extrem: General: normal to inspection Psych: Mental Status: mental status grossly normal Assessment and Plan Assessment and plan (1) Epigastric pain: Code(s): R10.13 - Epigastric pain Status: Acute Assessment and Plan: egd with bx
[2024-10-21 11:11] VITALS: BP 125/77; PULSE 62; RESP 16; O2SAT 96
[2024-10-21 11:21] VITALS: BP 146/78; PULSE 74; RESP 19; O2SAT 97
[2024-10-21 11:31] VITALS: BP 137/77; PULSE 61; RESP 20; O2SAT 97
--- NOTE | 2024-10-21 13:29 | S_PTH ---
PATIENT: Willy Griffith LOC: [facility]g#:[id number] AGE/SX: 64/M ROOM: RE10/21/[address]: Sandeep Noble MD : 1960 BED: DIS: 10/21/2024 SPEC #: [id number] RECD: 10/21/24 13:40 STATUS: ALICIA REBarbara #: [id number] NEVAEH: 10/21/24 13:[address]: Sandeep Noble DEPT: [facility] Surgical RECD BY: Talia Matias ENTERED: 10/21/24 13:40 SP TYPE: Surgical OTHR DR: Dwight DorseyMD Tissues: A - Gastric Biopsy B - Esophageal Biopsy Procedures: Hematoxylin and Eosin Stain Gross and Microscopic Level 4
== END 2024-10-21 11:37 | disposition home or self-care (01) ==
PROVIDERS: PCP Internal Medicine; Referring Provider Internal Medicine; Visit Provider Internal Medicine Gastroenterology
PROC: 0DJ08ZZ Inspection of Upper Intestinal Tract, Via Natural or Artificial Opening Endoscopic (ICD-10-PCS; CPT 43239; principal; 2024-10-21 11:15)
DX: K21.9 Gastro-esophageal reflux disease without esophagitis (principal); K31.89 Other diseases of stomach and duodenum; G47.33 Obstructive sleep apnea (adult) (pediatric); E66.9 Obesity, unspecified; Z68.35 Body mass index [BMI] 35.0-35.9, adult; Z99.89 Dependence on other enabling machines and devices
CPT/HCPCS: 43239; 88305; J2003; J2704; J7120

== ENCOUNTER 2024-11-03 13:41 | Emergency (ER) | payer OTHER, SELFPAY ==
--- NOTE | ~2024-11-03 | XR_ITS ---
EXAM/ PROCEDURE: XR femur RT min 2V - 11/03/2024 14:30 CDT HISTORY: 64 years old Male with R femur laceration TOILET BOWL FRAGMENT TO ANT MID TO DISTAL COMPARISON: None available TECHNIQUE: Four view(s) FINDINGS/ IMPRESSION: There are no fractures or dislocations.Joint space narrowing, subchondral sclerosis, subchondral cyst formation and osteophyte formation, compatible with mild osteoarthritis. Reviewed, dictated and finalized at location A.
--- OUTSIDE RECORDS SUMMARY | 2024-11-03 13:44 | XMS_ITS | Encounter Summary ---
Author Organization [facility] Address [address] [place] [address] Care Team Providers Care Dietary Manager Name Role Phone Unavailable Primary Care Provider Unavailabl e Encounter Details Date Type Department Care Team (Late st Contact Info) Description 10/30/2022 Lab Requisition [facility] - D[facility] Lab [address] [place] [id number] Lisseth Campbell MD [address] [place] [address] [place] [id number] Neoplasm of uncertain behavior of skin Social [...] AM CDT) Case Report Dermatopathology Report Case: [id number] Authorizing Provider: Lisseth Campbell MD Collected: 10/30/2022 12:00 AM Ordering Location: [facility] Derm[facility] Lab Received: 11/01/2022 08:11 AM Pathologist: [...] specimen consists of a shave biopsy measuring 22w56a2 mm. Jar 0. Specimen B: Received is [...] characteristic determined by the Dermatopathology Laboratory at [facility], directed by Dr. Carolina Parsons. These tests need not be, and therefore are not, approved by the [place] Food and Drug Administration. The tests are used for clinical purposes. Billing Codes Specimen Charges Stain Charges 24252 03100 1 1 3 1:07 PM CDT DERMATOPATHOLOGY LABORATORY Embedded Images 3 1:07 PM CDT DERMATOPATHOLOGY LABORATORY Pathology/Cytology TISSUE SPECIMEN FROM SKIN / Unknown 10/30/2022 11/01/2022 8:11 AM CDT Miscellaneous samples (specimen) TISSUE SPECIMEN FROM SKIN / Unknown 10/30/2022 11/01/2022 8:11 AM CDT us Lisseth Campbell MD LAB - PATHOLOGY/CYTOLOGY ORDERAB LES Final Result DERMATOPATHOLOGY LABORATORY [facility] - Department of Dermatology [facility] Medicine [address] [place] [address], [address] [phone] documented in this encounter Visit Diagnoses Diagnosis Neoplasm of uncertain behavior of skin documented in this encounter
--- OUTSIDE RECORDS SUMMARY | 2024-11-03 13:44 | XMS_ITS | Clinical Summary ---
Author Organization [facility] Address [address] [place] [address] Care Team Providers Care Beet Worker Name Role Phone Unavailable Primary Care Provider Unavailabl e Source Comments [facility],non-owned Affiliates and Associated Physician Practices is amultiple site organization consisting of ambulatory clinics and hospital sitesin [place], [place], [place] and [place]. This disclosure is being madepursuant to the Care Everywhere program and may not contain all information available regarding this patient. Last updated 18.[facility] Social History Tobacco Use Types Packs/Day Years [...] patient's age to complete this topic Insurance [employer] [facility] [employer] [facility] SELF PAY NO INSURANCE Member Subscriber Plan / Payer (Ef fective for All Dates) Name:Naresh Rain Member ID:Not on file Relation to Subscriber:Not on file Name:NARESH RAIN Subscriber ID:Not on file (Home) Address: [address] [place] [address] Payer ID:Not on file Group ID:Not on file Type:Self Pay Address: [place], [place]
--- OUTSIDE RECORDS SUMMARY | 2024-11-03 13:44 | XMS_ITS | Data Portability ---
Author Organization [place] [facility] [id number], Main Office Address [address] [place] [address] Assessment No assessment recorded. Plan of Treatment Reminders Order Date Submit Date Provider Last Modified By Organization Details Last Modified Time Details Appointments Any 2024 03:15P Yandel Dorsey MD Not available Not available Not available Any 2024 08:30A Yandel Dorsey MD Not available Not available Not available Lab HbA1c (hemoglob in A1c), blood 2024 025 Not available 10/29/2024 09:29:04 lipid panel, serum 2024 025 Not available 10/29/2024 09:29:04 CMP, serum or plasma 2024 025 [facility], [address] [place], [address], 10/29/2024 09:29:04 PSA, serum or plasma 2024 025 [facility], [address] [place], [address], 10/29/2024 09:29:04 CBC w/ auto diff 2024 025 [facility], [address] [place], [address], 10/29/2024 09:29:04 HbA1c (hemoglob in A1c), blood 2023 024 Not available 08/18/2024 09:36:04 lipid panel, serum 2023 024 Not available 08/18/2024 09:36:04 CMP, serum or plasma 2023 024 [facility], [address] [place], [address], 08/18/2024 09:36:05 PSA, serum or plasma 2023 024 [facility], [address] [facility] [place], [address], 08/18/2024 09:36:05 CBC w/ auto diff 2023 024 [facility], [address] [place], [address], 08/18/2024 09:36:05 HbA1c (hemoglob in A1c), blood 2022 023 NARAYAN Not available 02/25/2023 01:58:06 lipid panel, serum 2022 023 NARAYAN Not available 02/25/2023 01:48:05 CMP, serum or plasma 2022 023 NARAYAN [facility], [address] [place], [address], 02/24/2023 20:09:45 lipid panel, serum 2022 023 NARAYAN [facility], [address] [facility] [place], [address], 02/24/2023 20:09:50 PSA, serum or plasma 2022 023 [facility], [address] [place], [address], 03/04/2023 08:02:50 Referral EGD referral - Please call patient to schedule an appointme nt. Thank you. 2024 025 Sandeep milner MD, [address], [address], [place], [address], 11/02/2024 09:29:22 orthopedi c surgeon referral - please eval for bilateral hand pain after trauma M79.64 2 2023 024 Not available 07/25/2023 16:04:03 Procedures None recorded. Surgeries None recorded. Imaging None recorded. Medication Orders meloxicam 15 mg tablet 2022 023 [email or web address] [id number], [address] , [place], [place], [id number], 07/28/2024 10:17:09 Patient TargetsNo targets recorded. Patient Instructions Encounter Date Encounter Id Patient Instructions Last Modified By Organization Details Last Modified Time 02/24/2023 [id number] risk assessment* [email or web address] Not availabl e 02/24/2023 11:06:22 INFLUENZA VACCIN [...] indicated GLUCOSE SCREENING recommended LIPID SCREENING recommended Not available 02/24/2023 09:50:31 Reason for Referral [...] Abnormal Flag Note LastModifiedBy Organization Detail LastModifiedTime 02/21/20 22 02/20/2022 CBC/C OMPLE TE BLD COUNT W/DIF F hematocrit 50.9 % 39.3-5 0.0 high Not Available [facility] (Lab) [address] [place], [address], 02/20/2022 20:01:00 02/21/20 22 02/20/2022 CBC/C OMPLE TE BLD COUNT W/DIF F white blood cells 7.4 x10'3 /uL 4.2-10 .8 Not Available [facility] (Lab) [address] [place], [address], 02/20/2022 20:01:00 02/21/20 22 02/20/2022 CBC/C OMPLE TE BLD COUNT W/DIF F red blood cells 5.35 x10'6 /uL 4.10-5 .80 Not Available [facility] (Lab) [address] [place], [address], 02/20/2022 20:01:00 02/21/20 22 02/20/2022 CBC/C OMPLE TE BLD COUNT W/DIF F hemoglobin 16.8 g/dL 13.2-1 7.0 Not Available [facility] (Lab) [address] [place], [address], 02/20/2022 20:01:00 02/21/20 22 02/20/2022 CBC/C OMPLE TE BLD COUNT W/DIF F mean red cell volume 95.1 fL 80.0-9 7.0 Not Available [facility] (Lab) [address] [place], [address], 02/20/2022 20:01:00 02/21/20 22 02/20/2022 CBC/C OMPLE TE BLD COUNT W/DIF F mean red cell hemoglobin 31.4 pg 27.0-3 3.0 Not Available [facility] (Lab) [address] [place], [address], 02/20/2022 20:01:00 02/21/20 22 02/20/2022 CBC/C OMPLE TE BLD COUNT W/DIF F mean RBC HGB concentratio n 33.0 g/dL 31.0-3 6.0 Not Available [facility] (Lab) [address] [place], [address], 02/20/2022 20:01:00 02/21/20 22 02/20/2022 CBC/C OMPLE TE BLD COUNT W/DIF F red cell distribution width 13.1 % 11.8-1 5.5 Not Available [facility] (Lab) [address] [place], [address], 02/20/2022 20:01:00 02/21/20 22 02/20/2022 CBC/C OMPLE TE BLD COUNT W/DIF F platelets 178 x10'3 /uL 150-40 0 Not Available [facility] (Lab) [address] [place], [address], 02/20/2022 20:01:00 02/21/20 22 02/20/2022 CBC/C OMPLE TE BLD COUNT W/DIF F monocytes 7.7 % 5.0-12 .0 Not Available [facility] (Lab) [address] [place], [address], 02/20/2022 20:01:00 02/21/20 22 02/20/2022 CBC/C OMPLE TE BLD COUNT W/DIF F mean platelet volume 13.3 fL 9.0-12 .4 high Not Available [facility] (Lab) [address] [place], [address], 02/20/2022 20:01:00 02/21/20 22 02/20/2022 CBC/C OMPLE TE BLD COUNT W/DIF F neutrophils 67.1 % 39.0-7 2.0 Not Available [facility] (Lab) [address] [place], [address], 02/20/2022 20:01:00 02/21/20 22 02/20/2022 CBC/C OMPLE TE BLD COUNT W/DIF F lymphocytes 21.3 % 16.0-4 7.0 Not Available [facility] (Lab) [address] [place], [address], 02/20/2022 20:01:00 02/21/20 22 02/20/2022 CBC/C OMPLE TE BLD COUNT W/DIF F eosinophils 3.3 % 1.0-7. 0 Not Available [facility] (Lab) [address] [place], [address], 02/20/2022 20:01:00 02/21/20 22 02/20/2022 CBC/C OMPLE TE BLD COUNT W/DIF F basophils 0.5 % 0.0-2. 0 Not Available [facility] (Lab) [address] [place], [address], 02/20/2022 20:01:00 02/21/20 22 02/20/2022 CBC/C OMPLE TE BLD COUNT W/DIF F immature granulocytes 0.1 % 0.00-0 .50 Not Available [facility] (Lab) [address] [place], [address], 02/20/2022 20:01:00 02/21/20 22 02/20/2022 CBC/C OMPLE TE BLD COUNT W/DIF F neutrophils, absolute count 4.95 x10'3 /uL 1.5-8. 0 Not Available [facility] (Lab) [address] [place], [address], 02/20/2022 20:01:00 02/21/20 22 02/20/2022 CBC/C OMPLE TE BLD COUNT W/DIF F lymphocytes, absolute count 1.57 x10'3 /uL 1.07-3 .43 Not Available [facility] (Lab) [address] [place], [address], 02/20/2022 20:01:00 02/21/20 22 02/20/2022 CBC/C OMPLE TE BLD COUNT W/DIF F monocytes, absolute count 0.57 x10'3 /uL 0.29-0 .99 Not Available [facility] (Lab) [address] [place], [address], 02/20/2022 20:01:00 02/21/20 22 02/20/2022 CBC/C OMPLE TE BLD COUNT W/DIF F eosinophils, absolute count 0.24 x10'3 /uL 0.02-0 .53 Not Available [facility] (Lab) [address] [place], [address], 02/20/2022 20:01:00 02/21/20 22 02/20/2022 CBC/C OMPLE TE BLD COUNT W/DIF F basophils, absolute count 0.04 x10'3 /uL 0.01-0 .08 Not Available [facility] (Lab) [address] [place], [address], 02/20/2022 20:01:00 02/21/20 22 02/20/2022 CBC/C OMPLE TE BLD COUNT W/DIF F immature granulocytes ,absolute 0.01 x10'3 /uL 0.00-0 .05 Not Available [facility] (Lab) [address] [place], [address], 02/20/2022 20:01:00 02/21/20 22 02/20/2022 CBC/C OMPLE TE BLD COUNT W/DIF F nucleated red blood cells 0.0 % -0 Not Available [facility] (Lab) [address] [place], [address], 02/20/2022 20:01:00 02/21/20 22 02/20/2022 CBC/C OMPLE TE BLD COUNT W/DIF F NRBC# 0.00 x10'3 /uL Not Available [facility] (Lab) [address] [place] [address], [address], 02/20/2022 20:01:00 02/21/20 22 02/20/2022 LIPID PANEL cholesterol 173 mg/dL 140-19 9 NIH FERNANDA NSUS RECOM MENDA TION FOR DAVID STERO L: ADULT CHILD LOW RISK: <200 <170 BORDE RLINE : <200- 239 ----- HIGH RISK: >240 >200 Not Available [facility] (Lab) [address] [place] [address], [address], 02/20/2022 19:47:41 02/21/20 22 02/20/2022 LIPID PANEL triglyceride s 133 mg/dL 0-150 NIH FERNANDA NSUS REPOR T RECOM MENDA TION FOR TRIGL YCERI KAROLYN: ADULT CHILD LOW RISK: <150 ----- BODER LINE: 150-1 99 ----- HIGH RISK: >200 ----- Not Available [facility] (Lab) [address] [place] [address], [address], 02/20/2022 19:47:41 02/21/20 22 02/20/2022 LIPID PANEL HDL cholesterol 32 mg/dL 40- low Not Available [facility] (Lab) [address] [place] [address], [address], 02/20/2022 19:47:41 02/21/20 22 02/20/2022 LIPID PANEL [...] WILL NOT BE REPOR MAURICE. Not Available [facility] (Lab) [address] [place], [address], 02/20/2022 19:47:41 02/21/20 22 02/20/2022 HEMOG LOBIN A1C HA1C 5.5 % 4.0-6. 0 Diabe anahy Scree jose alberto Crite ulises: <5.7% Consi stent with absen ce of diabe anahy 5.7-6 .4% Consi stent with incre ased risk for diabe anahy (pred iabet es) >OR=6 .5% Consi stent with diabe anahy REFER ENCE: Diabe anahy Care 2016, 39(Jenkins ppl.1 ):s13 -s22 Not Available [facility] (Lab) [address] [place], [address], 02/20/2022 22:42:56 02/21/20 22 02/20/2022 PSA SCREE N PSA medicare screen 0.76 NG/mL 0.00-4 .00 Not Available [facility] (Lab) [address] [place], [address], 02/20/2022 20:09:37 02/21/20 22 02/20/2022 COMPR EHENS SENA METAB OLIC PANEL chloride 104 mmol/ L 98-107 Not Available [facility] (Lab) [address] [place], [address], 02/20/2022 19:47:51 02/21/20 22 02/20/2022 COMPR EHENS SENA METAB OLIC PANEL sodium 138 mmol/ L 137-14 5 Not Available [facility] (Lab) [address] [place], [address], 02/20/2022 19:47:51 02/21/20 22 02/20/2022 COMPR EHENS SENA METAB OLIC PANEL potassium 4.6 mmol/ L 3.5-5. 1 Not Available [facility] (Lab) [address] [place], [address], 02/20/2022 19:47:51 02/21/20 22 02/20/2022 COMPR EHENS SENA METAB OLIC PANEL carbon dioxide 22 mmol/ L 22-30 Not Available [facility] (Lab) [address] [place], [address], 02/20/2022 19:47:51 02/21/20 22 02/20/2022 COMPR EHENS SENA METAB OLIC PANEL anion gap 16.6 mmol/ L 14-22 Not Available [facility] (Lab) [address] [place], [address], 02/20/2022 19:47:51 02/21/20 22 02/20/2022 COMPR EHENS SENA METAB OLIC PANEL glucose 70 mg/dL 70-99 Not Available [facility] (Lab) [address] [place], [address], 02/20/2022 19:47:51 02/21/20 22 02/20/2022 COMPR EHENS SENA METAB OLIC PANEL BUN 13 mg/dL 8-19 Not Available [facility] (Lab) [address] [place], [address], 02/20/2022 19:47:51 02/21/20 22 02/20/2022 COMPR EHENS SENA METAB OLIC PANEL creatinine 0.87 mg/dL 0.66-1 .25 Not Available [facility] (Lab) [address] [place], [address], 02/20/2022 19:47:51 02/21/20 22 02/20/2022 COMPR EHENS SENA METAB OLIC PANEL GFR >60 Refer ence Range : [place] ge GFR Healt hy Adult : >60 [...] calcu lator is avail able on the [facility] websi te: https ://ej bae.myra ernandez.o rg/pr ofess ional s/kdo qi/gf r_cal culat or Not Available [facility] (Lab) [address] [place], [address], 02/20/2022 19:47:51 02/21/20 22 02/20/2022 COMPR EHENS SENA METAB OLIC PANEL alkaline phosphatase 61 U/L 38-126 Not Available [facility] (Lab) [address] [place], [address], 02/20/2022 19:47:51 02/21/20 22 02/20/2022 COMPR EHENS SENA METAB OLIC PANEL alanine aminotransfe rase 29 U/L 0-50 Not Available [facility] (Lab) [address] [place], [address], 02/20/2022 19:47:51 02/21/20 22 02/20/2022 COMPR EHENS SENA METAB OLIC PANEL total protein 6.7 g/dL 6.3-8. 2 Not Available [facility] (Lab) [address] [place], [address], 02/20/2022 19:47:51 02/21/20 22 02/20/2022 COMPR EHENS SENA METAB OLIC PANEL aspartate aminotransfe rase 31 U/L 15-46 Not Available [facility] (Lab) [address] [place], [address], 02/20/2022 19:47:51 02/21/20 22 02/20/2022 COMPR EHENS SENA METAB OLIC PANEL bilirubin, total 1.00 mg/dL 0.20-1 .30 Not Available [facility] (Lab) [address] [place], [address], 02/20/2022 19:47:51 02/21/20 22 02/20/2022 COMPR EHENS SENA METAB OLIC PANEL calcium 8.7 mg/dL 8.4-10 .2 Not Available [facility] (Lab) [address] [place], [address], 02/20/2022 19:47:51 02/21/20 22 02/20/2022 COMPR EHENS SENA METAB OLIC PANEL albumin 4.2 g/dL 3.4-5. 0 Not Available [facility] (Lab) [address] [place], [address], 02/20/2022 19:47:51 02/21/20 22 02/20/2022 COMPR EHENS SENA METAB OLIC PANEL globulin 2.5 g/dL 2.6-4. 2 low Not Available [facility] (Lab) [address] [place], [address], 02/20/2022 19:47:51 02/21/20 22 02/20/2022 COMPR EHENS SENA METAB OLIC PANEL A/G ratio 1.7 ratio 1.0-2. 0 Not Available [facility] (Lab) [address] [place], [address], 02/20/2022 19:47:51 02/25/20 23 02/24/2023 COMPR EHENS SENA METAB OLIC PANEL sodium 137 mmol/ L 137-14 5 Not Available [facility] (Lab) [address] [place], [address], 02/24/2023 20:09:45 02/25/20 23 02/24/2023 COMPR EHENS SENA METAB OLIC PANEL potassium 3.9 mmol/ L 3.5-5. 1 Not Available [facility] (Lab) [address] [place], [address], 02/24/2023 20:09:45 02/25/20 23 02/24/2023 COMPR EHENS SENA METAB OLIC PANEL chloride 105 mmol/ L 98-107 Not Available [facility] (Lab) [address] [place], [address], 02/24/2023 20:09:45 02/25/20 23 02/24/2023 COMPR EHENS SENA METAB OLIC PANEL carbon dioxide 22 mmol/ L 22-30 Not Available [facility] (Lab) [address] [place], [address], 02/24/2023 20:09:45 02/25/20 23 02/24/2023 COMPR EHENS SENA METAB OLIC PANEL anion gap 13.9 mmol/ L 14-22 low Not Available [facility] (Lab) [address] [place], [address], 02/24/2023 20:09:45 02/25/20 23 02/24/2023 COMPR EHENS SENA METAB OLIC PANEL glucose 101 mg/dL 70-99 high Not Available [facility] (Lab) [address] [place], [address], 02/24/2023 20:09:45 02/25/20 23 02/24/2023 COMPR EHENS SENA METAB OLIC PANEL BUN 13 mg/dL 8-19 Not Available [facility] (Lab) [address] [place], [address], 02/24/2023 20:09:45 02/25/20 23 02/24/2023 COMPR EHENS SENA METAB OLIC PANEL creatinine 0.93 mg/dL 0.66-1 .25 Not Available [facility] (Lab) [address] [place], [address], 02/24/2023 20:09:45 02/25/20 23 02/24/2023 COMPR EHENS SENA METAB OLIC PANEL GFR >60 Refer ence Range : [place] ge GFR Healt hy Adult : >60 [...] or ethni c subgr oups, such as Hisks nics. Outsi de the valid ated brandon [...] able on the F websi te: https ://ej w.kid oma.o rg/pr ofess ional s/kdo qi/gf r_cal culat or Not Available [facility] (Lab) [address] [place], [address], 02/24/2023 20:09:45 02/25/20 23 02/24/2023 COMPR EHENS SENA METAB OLIC PANEL alkaline phosphatase 65 U/L 38-126 Not Available [facility] (Lab) [address] [place], [address], 02/24/2023 20:09:45 02/25/20 23 02/24/2023 COMPR EHENS SENA METAB OLIC PANEL alanine aminotransfe rase 41 U/L 0-50 Not Available [facility] (Lab) [address] [place], [address], 02/24/2023 20:09:45 02/25/20 23 02/24/2023 COMPR EHENS SENA METAB OLIC PANEL aspartate aminotransfe rase 30 U/L 15-46 Not Available [facility] (Lab) [address] [place], [address], 02/24/2023 20:09:45 02/25/20 23 02/24/2023 COMPR EHENS SENA METAB OLIC PANEL bilirubin, total 0.90 mg/dL 0.20-1 .30 Not Available [facility] (Lab) [address] [place], [address], 02/24/2023 20:09:45 02/25/20 23 02/24/2023 COMPR EHENS SENA METAB OLIC PANEL calcium 9.2 mg/dL 8.4-10 .2 Not Available [facility] (Lab) [address] [place], [address], 02/24/2023 20:09:45 02/25/20 23 02/24/2023 COMPR EHENS SENA METAB OLIC PANEL total protein 7.0 g/dL 6.3-8. 2 Not Available [facility] (Lab) [address] [place], [address], 02/24/2023 20:09:45 02/25/20 23 02/24/2023 COMPR EHENS SENA METAB OLIC PANEL albumin 4.3 g/dL 3.4-5. 0 Not Available [facility] (Lab) [address] [place], [address], 02/24/2023 20:09:45 02/25/20 23 02/24/2023 COMPR EHENS SENA METAB OLIC PANEL globulin 2.7 g/dL 2.6-4. 2 Not Available [facility] (Lab) [address] [place], [address], 02/24/2023 20:09:45 02/25/20 23 02/24/2023 COMPR EHENS SENA METAB OLIC PANEL A/G ratio 1.6 ratio 1.0-2. 0 Not Available [facility] (Lab) [address] [place], [address], 02/24/2023 20:09:45 02/25/20 23 02/24/2023 LIPID PANEL cholesterol 187 mg/dL 140-19 9 NIH FERNANDA NSUS RECOM MENDA TION FOR DAVID STERO L: ADULT CHILD LOW RISK: <200 <170 BORDE RLINE : <200- 239 ----- HIGH RISK: >240 >200 Not Available [facility] (Lab) [address] [place], [address], 02/24/2023 20:09:50 02/25/20 23 02/24/2023 LIPID PANEL triglyceride s 221 mg/dL 0-150 high NIH FERNANDA NSUS REPOR T RECOM MENDA TION FOR TRIGL YCERI KAROLYN: ADULT CHILD LOW RISK: <150 ----- BODER LINE: 150-1 99 ----- HIGH RISK: >200 ----- Not Available [facility] (Lab) [address] [place], [address], 02/24/2023 20:09:50 02/25/20 23 02/24/2023 LIPID PANEL HDL cholesterol 29 mg/dL 40- low Not Available [facility] (Lab) [address] [place], [address], 02/24/2023 20:09:50 02/25/20 23 02/24/2023 LIPID PANEL LDL cholesterol, calculated 114 mg/dL 0-130 NIH FERNANDA NSUS REPOR T RECOM MENDA TIONS FOR LDL: ADULT CHILD LOW RISK <130 <110 (OPTI MAL LDL) <100 ----- JAYASHREEDE RLINE : 130-1 59 ----- HIGH RISK: >160 >130 A TRIGL YCERI DE RESUL T >400 INVAL IDATE S THE CALCU LATIO N FOR LDL FRACT IONAT ION - THE LDL RESUL T WILL NOT BE REPOR MAURICE. Not Available [facility] (Lab) [address] [place], [address], 02/24/2023 20:09:50 02/25/2002/24/2023 PSA SCREE N PSA medicare screen 0.75 NG/mL 0.00-4 .00 Not Available [facility] (Lab) [address] [place], [address], 02/24/2023 20:33:48 02/25/2002/24/2023 HEMOG LOBIN A1C HA1C 5.5 % 4.0-6. 0 Diabe anahy Scree jose alberto Crite ulises: <5.7% Consi stent with absen ce of diabe anahy 5.7-6 .4% Consi stent with incre ased risk for diabe anahy (pred iabet es) >OR=6 .5% Consi stent with diabe anahy REFER ENCE: Diabe anahy Care 2016, 39(Jenkins ppl.1 ):s13 -s22 Not Available [facility] (Lab) [address] [place], [address], 02/24/2023 20:41:30 02/21/20 22 02/08/2014 colon oscop y scree jose alberto (PROC ) No observ ation record ed. [email or web address] Not Available 2022 09:39:04 02/23/20 22 12/10/2019 colon oscop y scree jose alberto (PROC ) No observ ation record ed. [email or web address] Not Available 2022 09:39:04 11/02/19 25 10/21/2024 patel brink strodorian uoden oscop y with biops y (PROC ) No observ ation record ed. [email or web address] Not Available 2024 15:10:03 Result Notes None recorded. Problems Name Problem SNOMED Code Status Onset Date Resolution Date Notes Provider Name and Address Organization Details Recorded Time Sinusitis 17618489 Completed Not Available [facility] 3 05:58:59 Umbilical hernia 265975941 Completed 02/24/2023 Dwight Dorsey MD [address], [place], [address] , [facility] 3 09:40:00 Pharyngit is 253030032 Completed Not Available [facility] 3 05:58:59 Upper respirato ry infection 41547769 Completed Not Available [facility] 3 05:58:59 Rhinitis 88953971 Completed Not Available [facility] 3 05:59:00 Sleep apnea 79036145 Active cpap Not Available [facility] 3 05:59:00 Body mass index 30+ - obesity 510414661 Active 2018 Not Available [facility] 3 05:58:58 Adult health examinati on Active 2020 Dwight Dorsey MD [address], [place], [address] , [facility] 3 09:40:05 Hypertrig lyceridem ia 564428910 Active 2020 Not Available [facility] 3 05:58:59 Hyperglyc emia 63035592 Active 2020 Not Available [facility] 3 05:59:00 Chronic cough 09788304 Completed 202002/24/2023 Dwight Dorsey MD [address], [place], [address] , [facility] 3 09:38:21 Gastroeso phageal reflux disease 602592659 Active 2021 Dwight Dorsey MD [address], [place], [address] , [facility] 3 09:38:14 Arthritis 5238681 Active 2021 Dwight Dorsey MD [address], [place], [address] , [facility] 3 09:38:07 Pain of bilateral hands [id number] 065275 Active 2023 Monique Wheeler NP [address], [place], [address] , [facility] 4 14:13:50 Pain in right hand 18232577516 9109 Active 2023 Monique Wheeler NP [address], [place], [address] , [facility] 4 14:14:24 Pain of left hand 29316163587 9103 Active 2023 Monique Wheeler NP [address] [place] [address], [place], [address] , [facility] 4 14:14:55 Problem Notes None recorded. Procedures Surgical History Date Name Laterality Status Provider Name and Address Organization Details Recorded Time Hernia Surgery completed Not Available [facility] 06/12/2022 05:54:41 Imaging Results None recorded. [...] oral route as needed. 07/28 completed WILL 02/24FEB 22 ok to rf Not Available Not Available [...] BY MOUTH EVERY DAY 2024 active WILL FEB 21 ok to rf Not Available Not Available [...] Address Organization Details Last Updated DateTime 4 054197. 76 g 36.3 kg/m2 182.88 cm 97.3 [degF] 68 /min 96 % 96 % 120/80 mm[Hg] Leonarda devine Harrison [facility] [id number] 4 14:09:08 Date Recorded Body height Body temperature Body mass index (BMI) Body weight Heart rate Oxygen saturation Oxygen saturation in Arterial blood by Pulse oximetry Systolic And Diastolic Provider Name and Address Organization Details Last Updated DateTime 5 182.88 cm 97.6 [degF] 35.3 kg/m2 956532. 02 g 85 /min 96 % 96 % 142/80 mm[Hg] Leonarda devine Harrison Locally [facility] 5 09:40:39 Date Recorded Body height Body mass index (BMI) Body weight Body temperature Heart rate Oxygen saturation Oxygen saturation in Arterial blood by Pulse oximetry Systolic And Diastolic Provider Name and Address Organization Details Last Updated DateTime 4 182.88 cm 35.4 kg/m2 550414. 61 g 97.6 [degF] 77 /min 95 % 95 % 130/80 mm[Hg] Leonarda devine [place] [employer] [id number] 4 09:34:42 Date Recorded Body mass index (BMI) Body height Oxygen saturation Oxygen saturation in Arterial blood by Pulse oximetry Heart rate Body weight Systolic And Diastolic Provider Name and Address Organization Details Last Updated DateTime 2 32 kg/m2 182.88 cm 96 % 96 % 62 /min 040571. 8 g 128/84 mm[Hg] Not Available [facility] 3 05:57:12 Date Recorded Body weight Body temperature Heart rate Oxygen saturation Oxygen saturation in Arterial blood by Pulse oximetry Systolic And Diastolic Provider Name and Address Organization Details Last Updated DateTime 3 282150. 87 g 98.1 [degF] 63 /min 96 % 96 % 124/80 mm[Hg] Carol Araujo [place] [employer] [facility] [id number] 3 09:30:28 Social History Question Answer Notes LastModified by Organizat ion Details LastModified Time Tobacco Smoking Status Never Smoker [place] [facility] [id number] 02/24/2023 09:25:02 Do You Have An Advance Directive? Yes [id number] Information not available 06/12/2022 Do You Wear A Helmet When Biking? No Information not available 02/24/2023 What Is Your Level Of Caffeine Consumption? Occasional [id number] Information not available 06/12/2022 How Much Tobacco Do You Chew? None [id number] Information not available 06/12/2022 What Type Of Diet Are You Following? REGULAR [id number] Information not available 06/12/2022 Which Illicit Or Recreational Drugs Have You Used? None Information not available 02/24/2023 What Is The Highest Grade Or Level Of School You Have Completed Or The Highest Degree You Have Received? [id number] Information not available 02/24/2023 Have There Been Any Changes To Your Family Or Social Situation? No Information not available 02/24/2023 Do You Use Insect Repellent Routinely? Yes Information not available 02/24/2023 Where Do You Live? [facility] Information not available 02/24/2023 What Was The Date Of Your Most Recent Tobacco Screening? 02/20/2021 Information not available 02/24/2023 Have You Ever Been Counseled For Unhealthy Alcohol Use? No Information not available 02/24/2023 Do You Have Any Pets? Yes Information not available 02/24/2023 What Is Your Relationship Status? [id number] Information not available 06/12/2022 Do You Use [...] your level of alcohol consumption? Moderate weekends [id number] Information not available 06/12/2022 Do you or have you ever used smokeless tobacco? 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 Never used electronic cigarettes Information not available 02/24/2023 What is your exercise level? None [id number] Information not available 06/12/2022 Mental Status Question Answer Note LastModified by Organization D etails LastModified Time Do you feel stressed (tense, restless, nervous, or anxious, or unable to sleep at night)? [id number] Information not available 02/24/2023 Family History Relationship Description Onset Age of this Age Resolved Age Notes LastModified by Organization Details LastModified Time Mother Essential hypertension Not available 09:25:02 Mother Diabetes mellitus [id number] Not available 06/12/2022 05:54:44 Maternal Grandmother Diabetes mellitus [id number] Not available 06/12/2022 05:54:44 Maternal Grandfather Family history of malignant neoplasm COLON Not available 2022 09:25:02 Medical History No medical history recorded. Immunizations Vaccine Type Date Status Note Provider Nam e and Address Organization Details Recorded Time Influenza, split virus, quadrivalent, preservative 0 completed Not Available [facility] 06/12/2022 06:03:10 Tdap 2 completed Not Available [facility] 06/12/2022 06:03:10 Influenza, split virus, quadrivalent, PF 2 completed Not Available [facility] 06/12/2022 06:03:10 Influenza, split virus, quadrivalent, PF 1 completed Not Available [facility] 06/12/2022 06:03:10 Influenza, split virus, quadrivalent, preservative 9 completed Not Available [facility] 06/12/2022 06:03:10 Past Encounters Encounter ID Performer Location Encounter Start Date Encounter Closed Date Diagnosis/Indication Diagnosis SNOMED-CT Code Diagnosis ICD10 Code Diagnosis Note [id number] Dwight Dorsey MD [facility] [address] [place] [address] 07/27/2020 00:00:00 07/27/2020 11:28:53 [id number] Dwight Dorsey MD [facility] [address] [place] [address] 02/20/2021 00:00:00 02/20/2021 09:55:16 [id number] [facility] [address] [place] [address] 03/27/2021 00:00:00 03/27/2021 13:51:09 [id number] Dwight Dorsey MD [facility] [address] [place] [address] 02/20/2022 00:00:00 02/20/2022 13:19:08 [id number] Dwight Dorsey MD [facility] [address] [place] [address] 02/24/2023 09:23:55 02/24/2023 10:00:03 Adult health examination 953611196 Z00.00 Colonoscop y- 11/09/2019E ndoscopy- 11/09/2019P SA- dueFLU- 02/2022Tda p todayCOVID - has had both Pfizer inj Gastroesop hageal reflux disease 366558832 K21.9 controlled Arthritis 3576169 M19.90 start meds Hypertriglyceridemia 302 297200 E78.1 advised to watch diet Sleep apnea 28328707 G47 .30 on cpap Hyperglycemia 28204291 R 73.9 Screening for malignant neoplasm of prostate 291257499 Z12.5 Depression screening 171 149059 Z13.31 [id number] Dwight Dorsey MD [facility] [address] [place] [address] 07/15/2023 14:01:09 07/15/2023 14:21:21 Pain in right hand [id number] 37731 M79.641 he would like to see a hand specialist , will send referral, if he needs any additional testing he will let me know so that i can order it for him. Pain of left hand 399955 9119 39347 M79.642 Pain of bi lateral hands [id number] 0163898 M79.986 [id number] Dwight Dorsey MD [facility] [address] [facility] [place] [facility] [place] [address] 02/03/2024 09:20:37 02/03/2024 10:02:06 Adult health examination 319861977 Z00.00 Colonoscop y- 11/09/2019, nl, next in 10 yrsEndosco py- 11/09/2019P - 02/24/23AK U- 02/2022 - Declined 2023TdapCO VID- has had both Pfizer inj Gastroesop hageal reflux disease 183253912 K21.9 controlled with meds Arthritis 9063847 M19.90 meds help Hypertriglyceridemia 302 408136 E78.1 advised to watch diet Sleep apnea 94024036 G47 .30 on cpap Hyperglycemia 78455646 R 73.9 keep watching diet Screening for malignant neoplasm of prostate 942548952 Z12.5 [id number] Dwight Dorsey MD [facility] [address] [facility] [place] [facility] [place] [address] 07/28/2024 09:31:09 07/28/2024 11:25:31 Adult health examination 465649699 Z00.00 Colonoscop y- 11/09/2019, nl, next in 10 yrsEndosco py- 11/09/2019P - 02/24/23FL U- 02/2022 - Declined 2023TdapCO VID- has had both Pfizer inj Gastroesop hageal reflux disease 408548758 K21.9 not better, getting worse, not better after stopping meloxicam, needs EGD Arthritis 1340402 M19.90 meds help Hypertriglyceridemia 302 649194 E78.1 advised to watch diet Sleep apnea 16167038 G47 .30 on cpap Hyperglycemia 84359477 R 73.9 keep watching diet Screening for malignant neoplasm of prostate 642952504 Z12.5 Health Concerns Section Related Observation LastModified by Organization Detai ls LastModified Time None Recorded Concern Status LastModified by Organization Details LastModified Time None Recorded Advance Directives Directive Y: Payers Insurance Date Sequence Insurance Name Policy Number Policy Colindres Covered Member ID Colindres Member ID Guarantor Name 11/03/2024 1 [facility] [id number] Willy Griffith [id number] Willy Griffith Notes Date Note Type Note [...] 11/09/2019 Dr. Chatterjee. Dwight Dorsey MD [address], [place], [address], [place] 02/24/2023 11:06:26 07/15/2023 text/html He is here [...] the same doctor Monique Wheeler NP [address], [place], [address], [place] 07/15/2023 14:22:47 02/03/2024 text/html Pt is here [...] 11/09/2019 Dr. Chatterjee. Dwight Dorsey MD [address], [place], [address], [place] 02/03/2024 10:04:35 07/28/2024 text/html Pt is here today for his routine follow upPT IS NOT FASTING ( [facility] ) Sleep apnea- cpap, compliant, gets [...] on the chest Dwight Dorsey MD [address] [facility], [facility] [address], [place], [address], [place] [facility] 07/28/2024 16:17:06
[2024-11-03 13:53] VITALS: BP 173/96; PULSE 69; RESP 16; TEMP 36.4; O2SAT 97
--- NOTE | 2024-11-03 14:07 | ED.WOUNDLAC ---
HPI - Wound/Laceration General Chief Complaint: Wound/Laceration <Tiffany Chris APRN - Last Filed: 11/03/24 14:08> Stated Complaint: R leg laceration <Tiffany Chris APRN - Last Filed: 11/03/24 14:08> Time Seen by Provider: 11/03/24 14:00 <Tiffany Chris APRN - Last Filed: 11/03/24 14:08> Focused HPI: Patient is a 64-year-old male who presents to the ER after sustaining a laceration to his right upper leg. He reports he was hauling a toilet when he hit the side of it on a dumpster and part of it broke off. Patient reports the broken part scraped the side of his right upper leg. He is unsure when he last had his tetanus vaccine. Patient denies any medical history relevant to this ER visit. He denies any decreased range of motion, purulence drainage, or pain to the back of his right calf. GENERAL: Well-appearing, well-nourished, and in no acute distress. HEAD: Normocephalic, atraumatic. CHEST: Clear to auscultation. ?No respiratory distress. HEART: Regular rate and rhythm.? NEURO: ?Alert and oriented x3. Patient screened in triage and initial orders placed.? ?Additional care and disposition to be based upon?diagnostic testing and treatment. <Tiffany Chris APRN - Last Filed: 11/03/24 14:08> History of Present Illness HPI narrative: Agree with the above triage note. <Hanna Rivas PA-C - Last Filed: 11/03/24 20:41> Related Data Home Medications: Home Medications ?Medication ?Instructions ?Recorded ?Confirmed ?Last Taken ?Type pantoprazole 40 mg tablet,delayed 40 mg PO DAILY 10/01/24 10/21/24 10/20/24 History release <Tiffany Chris APRN - Last Filed: 11/03/24 14:08> Allergies/Adverse Reactions: Allergies Allergy/AdvReac Type Severity Reaction Status Date / Time No Known Allergies Allergy Verified 11/03/24 13:55 <Tiffany Chris APRN - Last Filed: 11/03/24 14:08> Review of Systems Review of Systems: All systems reviewed & are unremarkable except as noted in HPI and below <Hanna Rivas PA-C - Last Filed: 11/03/24 20:41> PMFSH Past Medical History Medical History: Medical History Epigastric pain <Tiffany Chris APRN - Last Filed: 11/03/24 14:08> Social History Social History: Social History Smoking status: Never smoker Alcohol intake: never Substance use: never Do You Feel Safe in your Home?: Yes Lack of Transportation: No Lack of Food: Never True Current Housing: I Have Housing Concerned About Future Housing: No Difficulty Paying Gas/Electric Bills: No Difficulty Paying for Meds: No Currently Unemployed: No Education: High School Diploma/GED Difficulty w/ Childcare or Family Care: No Living arrangements: with family Spiritual care concerns: No <Tiffany Chris, SAWYER - Last Filed: 11/03/24 14:08> Exam Narrative: GENERAL: Well-appearing, well-nourished, and in no acute distress. HEAD: Normocephalic, atraumatic. EYES:EOMI. ENT: Nares clear, no rhinorrhea or epistaxis. Mucous membranes moist. NECK: Supple. CHEST: Clear to auscultation. No respiratory distress. HEART: Regular rate and rhythm. No murmur heard. Normal peripheral pulses. EXTREMITIES: Normal range of motion. No edema. SKIN: 9 cm linear laceration to the right anterior thigh with exposed subcutaneous tissue, otherwise no deep structures or foreign bodies visualized. Patient has full active and passive range of motion of the knee and hip without difficulty. DP pulses 2+. Sensation intact. Bleeding controlled. NEURO: No focal deficits. Alert and oriented x3 <Hanna Rivas PA-C - Last Filed: 11/03/24 20:41> Course Vital Signs Vital signs: Vital Signs Temperature 97.6 F 11/03/24 13:53 Pulse Rate 69 11/03/24 13:53 Respiratory Rate 16 11/03/24 13:53 Blood Pressure 173/96 H 11/03/24 13:53 Pulse Oximetry 97 11/03/24 13:53 Oxygen Delivery Room Air 11/03/24 13:53 Temperature 97.6 F 11/03/24 13:53 Pulse Rate 69 11/03/24 13:53 Respiratory Rate 16 11/03/24 13:53 Blood Pressure 173/96 H 11/03/24 13:53 Pulse Oximetry 97 11/03/24 13:53 Oxygen Delivery Room Air 11/03/24 13:53 <Tiffany Chris, ELEVATOR CONSTRUCTOR - Last Filed: 11/03/24 14:08> Vital Signs Temperature 97.6 F 11/03/24 13:53 Pulse Rate 69 11/03/24 13:53 Respiratory Rate 16 11/03/24 13:53 Blood Pressure 173/96 H 11/03/24 13:53 Pulse Oximetry 97 11/03/24 13:53 Oxygen Delivery Room Air 11/03/24 13:53 Temperature 97.6 F 11/03/24 13:53 Pulse Rate 69 11/03/24 13:53 Respiratory Rate 16 11/03/24 13:53 Blood Pressure 173/96 H 11/03/24 13:53 Pulse Oximetry 97 11/03/24 13:53 Oxygen Delivery Room Air 11/03/24 13:53 <Hanna Rivas PA-C - Last Filed: 11/03/24 20:41> Procedures Laceration Laceration 1: Date: 11/03/24 <Hanna Rivas PA-C - Last Filed: 11/03/24 20:41> Time: 20:39 <Hanna Rivas PA-C - Last Filed: 11/03/24 20:41> Site: lower extremity <CARMINE Tee Last Filed: 11/03/24 20:41> Side (If applicable): right <CARMINE Tee Last Filed: 11/03/24 20:41> Size (cm): 9 <CARMINE Tee Last Filed: 11/03/24 20:41> Description: linear <CARMINE Tee Last Filed: 11/03/24 20:41> Depth: simple, single layer <Hanna Rivas PA-C - Last Filed: 11/03/24 20:41> Local Anesthetic: lidocaine 1% and with epi <CARMINE Tee Last Filed: 11/03/24 20:41> Amount of anesthesia used (mL): 7 <CARMINE Tee Last Filed: 11/03/24 20:41> Pre-repair: wound explored, irrigated and irrigated extensively <Hanna Rivas PA-C - Last Filed: 11/03/24 20:41> ====== Skin Level ======: Skin layer closed with: nylon <Hanna Rivas PA-C - Last Filed: 11/03/24 20:41> Size (cm): 4-0 <CARMINE Tee Last Filed: 11/03/24 20:41> Number of sutures: 12 <CARMINE Tee Last Filed: 11/03/24 20:41> Technique: simple, interrupted <CARMINE Tee Last Filed: 11/03/24 20:41> ====== Subcutaneous Layer ======: ====== Muscle Layer ======: ====== Tendon Layer ======: MDM - Wound/Laceration MDM Narrative Medical decision making narrative: 64-year-old male presents emergency department for laceration to his right anterior thigh that he obtain today. See HPI for further history. Vitals with elevated blood pressure. Patient is afebrile and nontoxic appearing. Exam is notable for 9 cm linear laceration to the right anterior thigh. Patient has full active and passive range of motion of knee and hip. Patient is neurovascularly intact. X-ray of the right femur shows no acute findings. Laceration irrigated extensively with normal saline and closed with sutures as noted above. Tdap updated. Patient started on Keflex prophylactically, discussed wound care, suture removal in 7 days and strict ED return precautions. He is agreeable with the plan verbalized understanding. Discharged in stable condition. <Hanna Rivas PA-C - Last Filed: 11/03/24 20:41> Discharge Plan Discharge Clinical Impression: Laceration <Tiffany Chris APRN - Last Filed: 11/03/24 14:08> Patient Disposition: Home <Tiffany Chris APRN - Last Filed: 11/03/24 14:08> Condition: Stable <Tiffany Chris APRN - Last Filed: 11/03/24 14:08> Instructions: Antibiotic Form, Care For Your Stitches (ED), Laceration (ED) <Tiffany Chris APRN - Last Filed: 11/03/24 14:08> Additional Instructions: Please have your stitches removed in 7 days by urgent care, emergency department or your primary care provider. Take your antibiotics as directed. Keep the wound clean and dry. Return to the emergency department if you develop surrounding redness, drainage, fever, or other concerning symptoms. <Tiffany Chris APRN - Last Filed: 11/03/24 14:08> Patient Language: Tajik <Tiffany Chris APRN - Last Filed: 11/03/24 14:08> Prescriptions: New cephalexin 500 mg capsule 500 mg PO Q8H 7 Days Qty: 21 0RF No Action pantoprazole 40 mg tablet,delayed release (DR/EC) 40 mg PO DAILY <Tiffany Chris APRN - Last Filed: 11/03/24 14:08> Follow-up/Referrals: Sunita,Dwight Cee MD [Primary Care Provider] - <Tiffany Chris APRN - Last Filed: 11/03/24 14:08>
[2024-11-03] MEDS: TETANUS,DIPHTHERIA,AC PERTUSSIS ADULT (0.5 ML) BOOSTRIX IM (17:23)
[2024-11-03] MEDS: NACL 0.9% IRRIGATION POUR BOTTLE 500 ML (17:24)
--- OUTSIDE RECORDS SUMMARY | 2024-11-03 19:22 | XMS_ITS | Continuity of Care Document ---
Author Organization [facility] Address [address] [place] [address] [address] [place] [address] Phone Care Team Providers Care Director Experimental Medicine Name Role Phone Lisseth JORDANAGaryi Unavailable Unavailable Procedures Procedure Date PT RE-EVALUATION THERAPEUTIC EXERCISES NEUROMUSCULAR RE-ED MANUAL THERAPY FUNC ACTIVITY HOT/COLD PACK ELECTRIC STIMULATION UNA THERAPEUTIC EXERCISES NEUROMUSCULAR RE-ED MANUAL THERAPY FUNC ACTIVITY HOT/COLD PACK ELECTRIC STIMULATION UNATT THERAPEUTIC EXERCISES NEUROMUSCULAR RE-ED MANUAL THERAPY FUNC ACTIVITY HOT/COLD PACK ELECTRIC STIMULATION UNATT THERAPEUTIC EXERCISES NEUROMUSCULAR RE-ED MANUAL THERAPY FUNC ACTIVITY HOT/COLD PACK ELECTRIC STIMULATION UNATT THERAPEUTIC EXERCISES NEUROMUSCULAR RE-ED MANUAL THERAPY FUNC ACTIVITY HOT/COLD PACK ELECTRIC STIMULATION UNATT PT RE-EVALUATION THERAPEUTIC EXERCISES NEUROMUSCULAR RE-ED MANUAL THERAPY FUNC ACTIVITY HOT/COLD PACK ELECTRIC STIMULATION UNATT THERAPEUTIC EXERCISES NEUROMUSCULAR RE-ED FUNC ACTIVITY 15 MIN MANUAL THERAPY HOT/COLD PACK ELECTRIC STIMULATION UNA THERAPEUTIC EXERCISES MANUAL THERAPY FUNC ACTIVITY 15 MIN HOT/COLD PACK ELECTRIC STIMULATION UNA PT EVALUATION THERAPEUTIC EXERCISES MANUAL THERAPY HOT/COLD PACK ELECTRIC STIMULATION UNATT Advance Directives Directive Yes / No Effective Date File Name No Information Encounters Encounter Description Practice Location Reason(s) For Visit Diagnoses Date Provider Providers Copied on Encounter [address], [id number], tel:[phone] [place] No Information Sep-2 6-201 4 Montanez Mini. [address] [place] [address], [facility] [address], [place], [facility], . tel:[phone] Referring Provider: Seun Gurrola Jr, [address] [facility] [address], [place], [address]. tel:[phone], [place], [id number], tel:[phone] [place] No Information Sep-2 4-201 4 Montanez Mini. [address] [place] [address], [facility] [address] [place], [place], [facility], [place]. tel:[phone] Referring Provider: Seun Gurrola Jr, [address] [facility] [address], [place], [address]. tel:[phone], [place], [id number], tel:[phone] [place] No Information Sep-2 3-201 4 Montanez Mini. [address] [facility], [address], [place], [place], [facility], . tel:[phone] Referring Provider: Seun Gurrola Jr, [address] [facility] [address], [place], [address]. tel:[phone], [place], [place], [id number], tel:[phone] [place] No Information 4 Montanez Mini. [address] [place] [address], [address], [place], [address], [place]. tel: [phone] Referring Provider: Seun Gurrola Jr, [address] [facility] [address], [place], [address]. tel:[phone] [address], [place], [place], [id number], [place] tel:[phone] [place] No Information 4 Montanez Mini. [address] [place] [address], [address], [place], [address], [place]. tel: [phone] Referring Provider: Seun Gurrola Jr, [address] [facility] [address], [place], [address]. tel:[phone], [place], [id number], [place] tel:[phone] [place] No Information 4 Montanez Mini. [address] [place] [address], [address], [place], [address], [place]. tel: [phone] Referring Provider: Seun Gurrola Jr, [address] [facility] [address], [place], [address]. tel:[phone] [address], [place], [place], [id number], [place] tel:[phone] [place] No Information 2 4 Montanez Mini. [address] [place] [address], [address], [place], [address], [place]. tel: [phone] Referring Provider: Seun Gurrola Jr, [address] [facility] [address], [place], [address]. tel:[phone] [address], [place], [place], [id number], [phone] [place] No Information 0 4 Lisseth Morse. [address] [facility], [address], [place], [facility], . tel:[phone] Referring Provider: Seun Gurrola Jr, [address] [address], [place], [address]. tel:[phone], [place], [place], [id number], tel:[phone] [place] Pain in joint involving lower leg 9 4 Lisseth Morse. [address] [place] [address], [address], [place], [place], [facility], . tel:[phone] Referring Provider: Seun Gurrola Jr, [address] [facility] [address], [place], [address]. tel:[phone] Family History Family Member Type Diagnosis Age At Onset No Information Payers Payer name Insurance type Covered constitution party ID Mayra barone(s) [facility] [id number] [facility] 2014 Social History Type Description Quantity Date Captured Comments Sex Male Smoking Status No Information Chief Complaint And Reason For Visit No Information Reason For Referral Reason For Referral No Information History Of Present Illness Encounter Date Complaint History Of Prese nt Illness No Information Functional Status Date Functional Assessmen t No Information Instructions Date Instruction Additional Infor mation No Information Assessments Type Assessment Date No Information Patient Care Teams Name Effective Dates (start - stop) Status Members No Information
--- OUTSIDE RECORDS SUMMARY | 2024-11-03 19:22 | XMS_ITS | Clinical Summary ---
Author Organization [facility] [employer] Address [address] [place] [address] Care Team Providers Care Tinner Automatic Name Role Phone Unavailable Primary Care Provider Unavailabl e Source Comments [facility] [employer],non-owned Affiliates and Associated Physician Practices is amultiple site organization consisting of ambulatory clinics and hospital sitesin [place], [place], [place] and [place]. This disclosure is being madepursuant to the Care Everywhere program and may not contain all information available regarding this patient. Last updated 18.[facility] [employer] Social History Tobacco Use Types Packs/Day Years [...] patient's age to complete this topic Insurance [facility] [facility] SELF PAY NO INSURANCE Member Subscriber Plan / Payer (Ef fective for All Dates) Name:Naresh Rain Member ID:Not on file Relation to Subscriber:Not on file Name:NARESH RAIN Subscriber ID:Not on file (Home) Address: [address] [place] [address] Payer ID:Not on file Group ID:Not on file Type:Self Pay Address: [place], [place]
--- OUTSIDE RECORDS SUMMARY | 2024-11-03 19:22 | XMS_ITS | Encounter Summary ---
Author Organization [facility] Address [address] [facility] [place] [address] Care Team Providers Care Social Media Analyst Name Role Phone Unavailable Primary Care Provider Unavailabl e Encounter Details Date Type Department Care Team (Late st Contact Info) Description 10/30/2022 Lab Requisition [facility] - DermPath Lab [address] [facility] [place] [id number] Lisseth Campbell MD [address] [place] [address] [place] [address] Neoplasm of uncertain behavior of skin Social [...] AM CDT) Case Report Dermatopathology Report Case: [id number] Authorizing Provider: Lisseth Campbell MD Collected: 10/30/2022 12:00 AM Ordering Location: [facility] DermPath Lab Received: 11/01/2022 08:11 AM Pathologist: [...] specimen consists of a shave biopsy measuring 06v35d4 mm. Jar 0. Specimen B: Received is [...] purposes. Billing Codes Specimen Charges Stain Charges [id number] 1 1 3 1:07 PM CDT DERMATOPATHOLOGY LABORATORY Embedded Images 3 1:07 PM CDT DERMATOPATHOLOGY LABORATORY Pathology/Cytology TISSUE SPECIMEN FROM SKIN / Unknown 10/30/2022 11/01/2022 8:11 AM CDT Miscellaneous samples (specimen) TISSUE SPECIMEN FROM SKIN / Unknown 10/30/2022 11/01/2022 8:11 AM CDT us Lisseth Campbell MD LAB - PATHOLOGY/CYTOLOGY ORDERAB LES Final Result DERMATOPATHOLOGY LABORATORY [facility] - Department of Dermatology [facility] Medicine [address] [place] [address], [address] [phone] documented in this encounter Visit Diagnoses Diagnosis Neoplasm of uncertain behavior of skin documented in this encounter
[2024-11-03] MEDS: CEPHALEXIN 500 MG CAPSULE PO (20:49)
== END 2024-11-03 20:53 | disposition home or self-care (01) ==
PROVIDERS: Emergency Provider Physician Assistant; PCP Internal Medicine
DX: S71.111A Laceration without foreign body, right thigh, initial encounter (principal); Z23 Encounter for immunization; W26.8XXA Contact with other sharp object(s), not elsewhere classified, initial encounter
CPT/HCPCS: 12004; 73552; 90471; 90715; 99283; A9270; J2003